=== PATIENT | female | born 2000 | race Caucasian/White ===

== ENCOUNTER 2023-11-13 08:57 | Outpatient (AMB) | payer BC, SELFPAY ==
--- NOTE | 2023-11-13 09:18 | A.OFFPC_ITS ---
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: No Was dental information given to patient?: 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 She is transferring from [facility]. She states that her last physical with [facility] was in August of this year. She has a significant past medical history of anxiety, depression and migraines. Neuro: She states that she has a hx of migraines and for many years she has been on amitriptyline x 10 years or so. She has tried topamax but it was ineffective. She has never seen a neurologist or an MRI. She states the amitriptyline used to prevent headaches but recently she has been getting more breakthrough migraines. She is getting migraines 4x a month and then dull headaches a few times a month as well. She states that the migraine is usually throughout the front part of her head but can occur on either side of her head. She will get an aura with it. She states that developing the aura is relatively new for her and has only been present for the last year. She states the last 6 months is when she noticed them getting worse. She states she has a lot anxiety and thinks that her stress triggers migraines. Temperature fluctuations trigger migraines. Light and sound make it worse. She states when she gets a migraine she takes Excedrin. Has not had an eye exam since childhood. She does have a family history of migraines. She denies any paresthesias, weakness, abnormal gait, nausea or vomiting. Psych: She does report that her anxiety does feel overall controlled. Her depression is still present but mild. She states in 2019 she started treatment for anxiety and depression. She states at that time she was on zoloft and amitriptyline. She was on this combo for a year and it was not that helpful. No adverse effects to medications. She denies hospitalizations related to mental health. She denies any SI/HI. No auditory or visual hallucinations. She does not want to see a therapist. She feels that she can manage this on her own. Reports a good support system. 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 [employer]: [facility]. She has an appointment scheduled with a bookkeeping clerk in February. [facility] Medical History (Updated 11/13/23 @ 10:08 by Dory Guevara PA-C) Major depression in partial remission Generalized anxiety disorder Migraine headache with aura Family History Mother HTN (hypertension) Diabetes Social History Housing: Apartment Patient Tobacco Use Status: Never used Tobacco e-Cigarette/Vaping Use: Never Used Second Hand Smoke Exposure: Yes service: No Current occupational status: employed Current occupation: [email or web address] Current occupational exposures/hazards: No Cognitive needs: No Hearing needs: No Vision needs: No Female Reproductive History Menstrual Date of last menstrual period: 09/07/23 Questionnaire PHQ-9 Over the last 2 weeks, how often have you been bothered by any of the following problems? 1. Little interest or pleasure in doing things: nearly every day 2. Feeling down, depressed, or hopeless: more than half the days 3. Trouble falling or staying asleep, or sleeping too much: nearly every day 4. Feeling tired or having little energy: nearly every day 5. Poor appetite or overeating: more than half the days 6. Feeling bad about yourself - or that you are a failure or have let yourself or your family down: not at all 7. Trouble concentrating on things, such as reading the newspaper or watching television: more than half the days 8. Moving or speaking so slowly that other people could have noticed. Or the opposite - being so fidgety or restless that you have been moving around a lot more than usual: not at all 9. Thoughts that you would be better off or of hurting yourself in some way: not at all Total score: 15 Depression Screening Interpretation: Positive Depression Screening Follow-up: Existing condition, In treatment, Change in Medication and Follow-up Visit Requested Depression Screening Done: Yes 67215 - PHQ-9 Billing: Yes Source: Developed by Drs. Amos Sena, Amy Pritchett, Ever Quintanilla and colleagues, with an educational tomas from [employer]. Thrive Questionnaire Date Thrive assessed: 11/13/23 I am a: Patient What is your living situation today?: I have a steady place to live Within the past 12 months, did the food you bought not last and you didn't have the money to get more?: Never true Within the past 12 months, did you worry whether your food would run out before you got money to buy more?: Never true Do you have trouble paying for medicines?: No Do you have trouble getting transportation to medical appointments?: No Do you have trouble paying your heating and electricity bill?: No Do you have trouble taking care of your child, family member or friend?: No Do you have trouble with day-to-day activities such as bathing, preparing meals, shopping, managing finances, etc.?: No Are you currently unemployed and looking for a job?: No Are you interested in more education?: No Please select the resources that you would like help with: None Currently or been in a relationship where the following occur: no concerns reported THRIVE Score: 0 AUDIT C Alcohol Use Questionnaire (AUDIT-C) 1. How often do you have a drink containing alcohol?: Monthly or less 2. How many drinks containing alcohol do you have on a typical day when you are drinking?: 1 or 2 Total Score: 1 Score Reviewed/Action Taken: Yes MARÍA-7 AMB Questionnaire MARÍA-7 Date MARÍA - 7 assessed: 11/13/23 Feeling nervous, anxious, or on edge: 0 = Not at all Not being able to stop or control worryin = Several days Worrying too much about different things: 3 = Nearly every day Trouble relaxin = Several days Being so restless that it is hard to sit still: 0 = Not at all Becoming easily annoyed or irritable: 1 = Several days Feeling afraid as if something awful might happen: 0 = Not at all Total MARÍA-7 score (0-4 normal; 5-9 mild; 10-14 moderate; 15-21 severe): 6 Source: Developed by Drs. Amos Sena, Amy Pritchett, Ever Quintanilla and colleagues, with an educational tomas from [employer]. MARÍA-7 Assessment Billing MARÍA-7 Assessment Tool: MARÍA-7 Assessment 36813 Review of Systems Const Reports as per HPI Eyes Reports as per HPI ENT Denies dysphagia and Denies odynophagia Card Denies as per HPI, Denies no additional complaints, Denies acrocyanosis, Denies chest pain, Denies chest pain at rest, Denies chest pain with activity, Denies diaphoresis, Denies syncope, Denies rapid heart rate, Denies pedal edema, Denies edema, Denies irregular heart rhythm, Denies claudication, Denies leg ulcers, Denies leg edema, Denies lightheadedness, Denies radiating jaw, neck or arm pain, Denies palpitations, Denies dyspnea, Denies dyspnea on exertion, Denies orthopnea, Denies paroxysmal nocturnal dyspnea, Denies slow heart rate and Denies other Resp Denies dyspnea and Denies dyspnea on exertion GI Denies as per HPI, Denies no additional complaints, Denies abdominal pain, Denies belching, Denies melena, Denies bloating, Denies hematochezia, Denies change in bowel habits, Denies tenesmus, Denies change in stool character, Denies coffee ground emesis, Denies constipation, Denies GI cramping, Denies dysphagia, Denies excessive flatus, Denies early satiety, Denies dyspepsia, Denies heartburn, Denies fecal incontinence, Denies diarrhea, Denies loose stools, Denies nausea, Denies odynophagia, Denies vomiting, Denies hematemesis and Denies other Neuro Reports as per HPI and Denies syncope Psych Reports as per HPI Endo Denies palpitations Physical exam (Primary Care) Vital Signs: Last Vital Signs Temp 98.7 F 11/13/23 09:24 Pulse 116 H 11/13/23 09:24 Resp 12 11/13/23 09:24 BP 98/78 11/13/23 09:24 Pulse Ox 98 11/13/23 09:24 Oxygen Delivery Method Room Air 11/13/23 09:24 BMI result Body Mass Index 22.7 Tobacco/Smoking Status: Tobacco use Status Tobacco use date assessed 11/13/23 11/13/23 09:29 Patient Tobacco Use Status Never used Tobacco 11/13/23 09:29 e-Cigarette/Vaping Use Never Used 11/13/23 09:29 PHQ-9: PHQ-9 Score PHQ-9: Total score 15 11/13/23 09:29 Depression Screening Interpretation: Positive Depression Screening Follow-up: Existing condition, In treatment, Change in Medication and Follow-up Visit Requested Thrive Assessment: Date of Thrive Assessment Date Thrive assessed 11/13/23 11/13/23 09:29 Currently or been in a relationship where the following occur: no concerns reported Const Orientation/consciousness: patient oriented x3 HENMT Ears: hearing grossly normal bilaterally and TM's normal bilaterally Eyes Pupils: Equal, round and reactive pupils present EOM: EOMs intact bilaterally Neck Thyroid: Thyroid normal Lymphatic: no lymphadenopathy noted Resp Auscultation: clear to auscultation bilaterally Cardio Rate: regular rate Rhythm: regular rhythm Heart sounds: S1 normal heart sound present and S2 normal heart sound present GI Inspection: Yes normal to inspection Palpation (GI): Soft to palpation and Other GI palpation findings present (n ontender, no cva tenderness) Auscultation: normoactive bowel sounds Rectal Exam - Female: deferred Skin General skin exam: no rashes or lesions noted Neuro General: patient oriented x3, gait normal, no focal motor deficits and deep tendon reflexes 2+ bilaterally Cranial nerves: Yes CN's II-XII intact bilaterally and Yes Equal, round and reactive pupils present Motor exam (neuro): 5/5 motor strength present throughout Sensory Exam: double simultaneous stimulation for sensation normal Coordination: [id number] test normal Romberg Test: Negative Extrem General: Yes full ROM Psych Affect: normal affect Attitude: cooperative Thought process: Normal thought process present Thought content: Normal thought content present Insight: Good insight present (Psych) Judgement: Good judgement present (Psych) Assessment and Plan Assessment & Plan (1) Migraine headache with aura: Code(s): G43.109 - Migraine with aura, not intractable, without status migrainosus Qualifiers: Status migrainosus presence: without status migrainosus Intractability: not intractable Qualified Code(s): G43.109 - Migraine with aura, not intractable, without status migrainosus Plan: Patient does appear grossly neurologically intact. Given the increased number of migraines and breakthrough headaches labs and MRI ordered. We discussed trying magnesium, riboflavin and B supplements. I will increase the amitriptyline. We will have her follow-up in 4 weeks. Advised to increase hydration and to get an eye exam. Sooner if anything worsens or changes. (2) Generalized anxiety disorder: Code(s): F41.1 - Generalized anxiety disorder Plan: See above. (3) Major depression in partial remission: Code(s): F32.4 - Major depressive disorder, single episode, in partial remission Qualifiers: Major depression recurrence: recurrent Qualified Code(s): F33.41 - Major depressive disorder, recurrent, in partial remission Plan: Increased amitriptyline. (4) Encounter to establish care: Code(s): Z76.89 - Persons encountering health services in other specified circumstances Plan: Labs ordered today including cholesterol she has not had this done. Orders: Orders Complete Blood Count Auto Diff Today F32.4 - Major depressive disorder, single episode, in partial remission, F41.1 - Generalized anxiety disorder, G43.109 - Migraine with aura, not intractable, without status migrainosus, Z13.220 - Encounter for screening for lipoid disorders, Z76.89 - Persons encountering health services in other specified circumstances Comprehensive [place]. Panel Fast Today F32.4 - Major depressive disorder, single episode, in partial remission, F41.1 - Generalized anxiety disorder, G43.109 - Migraine with aura, not intractable, without status migrainosus, Z13.220 - Encounter for screening for lipoid disorders, Z76.89 - Persons encountering health services in other specified circumstances IRON PROFILE Today F32.4 - Major depressive disorder, single episode, in partial remission, F41.1 - Generalized anxiety disorder, G43.109 - Migraine with aura, not intractable, without status migrainosus, Z13.220 - Encounter for screening for lipoid disorders, Z76.89 - Persons encountering health services in other specified circumstances Vitamin B12 and Folate Today F32.4 - Major depressive disorder, single episode, in partial remission, F41.1 - Generalized anxiety disorder, G43.109 - Migraine with aura, not intractable, without status migrainosus, Z13.220 - Encounter for screening for lipoid disorders, Z76.89 - Persons encountering health services in other specified circumstances Lipid Panel Today F32.4 - Major depressive disorder, single episode, in partial remission, F41.1 - Generalized anxiety disorder, G43.109 - Migraine with aura, not intractable, without status migrainosus, Z13.220 - Encounter for screening for lipoid disorders, Z76.89 - Persons encountering health services in other specified circumstances TSH reflex Free T4 Today F32.4 - Major depressive disorder, single episode, in partial remission, F41.1 - Generalized anxiety disorder, G43.109 - Migraine with aura, not intractable, without status migrainosus, Z13.220 - Encounter for screening for lipoid disorders, Z76.89 - Persons encountering health services in other specified circumstances Ferritin Today F32.4 - Major depressive disorder, single episode, in partial remission, F41.1 - Generalized anxiety disorder, G43.109 - Migraine with aura, not intractable, without status migrainosus, Z13.220 - Encounter for screening for lipoid disorders, Z76.89 - Persons encountering health services in other specified circumstances MR head/brain wo con Today G43.109 - Migraine with aura, not intractable, without status migrainosus Medications: New amitriptyline 75 mg PO BEDTIME 90 days 90 tabs 2RF Coding Level of Care Code New Pt Level 3 (22491) Complex EM visit Add On G2211 Diagnoses Migraine with aura and without status migrainosus, not intractable G43.109 Status migrainosus presence: without status migrainosus Intractability: not intractable Generalized anxiety disorder F41.1 Recurrent major depressive disorder, in partial remission F33.41 Major depression recurrence: recurrent Encounter to establish care Z76.89 Additional Codes MARÍA-7 Assessment Billing - MARÍA-7 Assessment Tool: MARÍA-7 Assessment [id number] ([id number])
[2023-11-13 09:24] VITALS: BP 98/78; PULSE 116; RESP 12; TEMP 37.1; O2SAT 98; BMI 22.7
== END 2023-11-13 10:09 | disposition home or self-care (01) ==
PROVIDERS: PCP Physician Assistant; Visit Provider Physician Assistant
DX: G43.109 Migraine with aura, not intractable, without status migrainosus (principal); F41.1 Generalized anxiety disorder; F33.41 Major depressive disorder, recurrent, in partial remission; Z76.89 Persons encountering health services in other specified circumstances
CPT/HCPCS: 96127; 99204; G2211

== ENCOUNTER 2023-11-13 10:09 | Outpatient (REF) | payer BC, SELFPAY ==
[2023-11-13 11:39] LABS: MANUAL DIFF FLAG NO
[2023-11-13 11:45] LABS: Basophils Absolute Auto 0.1 X10*3/uL (0.0-0.2); Basophils Percent Auto 0.9 % (0-2); Eosinophils Percent Auto 0.5 % (0-4); Hematocrit 45.2 % (37.0-47.0); Hemoglobin 15.4 g/dl (12.0-16.0); Imm Gran Abs Auto 0.01 X10*3/uL (0.00-0.03); Imm Gran Pct Auto 0.2 % (0.0-0.4); Lymphocytes Absolute Auto 1.3 X10*3/uL (1.2-4.9); Lymphocytes Percent Auto 22.9 % (20-40); Mean Corpuscular HGB Conc 34.1 g/dl (31.0-35.0); Mean Corpuscular Hemoglobin 30.9 pg (27.0-33.0); Mean Corpuscular Volume 90.8 fL (80.0-98.0); Mean Platelet Volume 10.6 fL (9.4-12.3); Monocytes Absolute Auto 0.4 X10*3/uL (0.1-1.2); Monocytes Percent Auto 6.2 % (2-11); Neutrophils Absolute Auto 3.9 x10*3/uL (2.0-8.3); Neutrophils Percent Auto 69.3 % (45-73); Platelet Count 236 X10*3/uL (160-400); Red Blood Count 4.98 X10*6/uL (4.20-5.50); Red Cell Distribution Width 12.6 % (11.0-16.0); White Blood Count 5.6 X10*3/uL (4.8-10.8)
[2023-11-13 12:02] LABS: Alanine Aminotransferase 22 U/L (0-31); Albumin Level 4.7 g/dL (3.5-5.0); Alkaline Phosphatase 50 U/L (39-117); Anion Gap 12 (12-20); Aspartate Amino Transferase 17 U/L (5-31); Bilirubin Total 0.6 mg/dL (0.0-1.0); Blood Urea Nitrogen 9 mg/dL (9-16); Calcium 9.8 mg/dL (8.4-10.2); Carbon Dioxide 24 mmol/L (22-29); Chloride 108 mmol/L (96-108); Cholesterol 170 mg/dL (<200); Estimated Glomerular Filt Rate > 60; Glucose Fasting 85 mg/dL (60-99); HDL Cholesterol 43 mg/dL (>40); Iron 152 mcg/dL (30-160); LDL Cholesterol Calculated 114 mg/dL (<100); Percent Iron Saturation 39 % (15-50); Potassium 4.1 mmol/L (3.3-5.1); Sodium 140 mmol/L (135-145); Total Iron Binding Capacity 388 mcg/dL (228-428); Total Protein 7.8 g/dL (6.5-8.0); Triglycerides 68 mg/dL (<150); Unsaturated Iron Binding 236 ug/dL
[2023-11-13 12:17] LABS: Ferritin 12 ng/mL (10-122); TSH reflex Free T4 1.86 uIU/mL (0.32-4.0)
[2023-11-13 12:57] LABS: Folate 7.7 ng/mL (> or = 4.0); Vitamin B12 189 pg/mL (200-900)
== END 2023-11-13 10:10 | disposition home or self-care (01) ==
LOC: HO.WFDLDS 10:09
PROVIDERS: Visit Provider Physician Assistant
DX: Z13.220 Encounter for screening for lipoid disorders (principal); Z13.6 Encounter for screening for cardiovascular disorders; G43.109 Migraine with aura, not intractable, without status migrainosus; F41.1 Generalized anxiety disorder; F32.4 Major depressive disorder, single episode, in partial remission; Z76.89 Persons encountering health services in other specified circumstances
CPT/HCPCS: 36415; 80053; 80061; 82607; 82728; 82746; 83540; 84443; 85025

== ENCOUNTER 2023-12-21 13:56 | Outpatient (AMB) | payer BC, SELFPAY ==
--- NOTE | 2023-12-21 14:07 | A.OFFPC_ITS ---
Vital Signs 12/21/23 14:13 Height 5 ft 1 in Weight 123 lb BMI 23.2 BP 104/70 Blood Pressure Location Lt radial Position Sitting Respiration 12 Pulse 64 Pulse Source Pulse Oximeter Temp 98.4 F Temp Source Oral Pulse Oximetry (%) 99 Oxygen Delivery Method Room Air Intake Visit Reasons: migraines/depression Allergies No Known Allergies [No Known Allergies*] Allergy (Verified 11/13/23 09:20) Medication List - Last Reconciled 12/21/23 by Dory Guevara PA-C cyanocobalamin (vitamin B-12) ER (Vitamin B-12 ER) 1,000 mcg PO DAILY medroxyprogesterone (Depo-Provera) 150 mg IM [id number] Tobacco use date assessed: 11/13/23 Dental Screening Dental Screen Date: 11/13/23 HPI migraines/depression HPI Details Pt is a 23 y/o female who presents today for a follow up. She has a significant past medical history of anxiety, depression and migraines. Neuro: At our last visit I increased the amitriptyline. She is tolerating this well and states that it has helped and she has only had about 1 headache a week since increasing this medication. Her MRI is scheduled along with her eye exam. She denies any paresthesias, weakness, abnormal gait, nausea or vomiting. Psych: She has felt since increasing the amitriptyline that her anxiety and depression are also better controlled. She feels happier since being on the B12 as well. Her PHQ-9 score improved. No SI/HI. PFSH Medical History (Updated 12/21/23 @ 15:08 by Dory Guevara PA-C) Major depression in partial remission Generalized anxiety disorder Migraine headache with aura Family History Mother HTN (hypertension) Diabetes Social History Housing: Apartment Patient Tobacco Use Status: Never used Tobacco e-Cigarette/Vaping Use: Never Used Second Hand Smoke Exposure: Yes service: No Current occupational status: employed Current occupation: [employer] Current occupational exposures/hazards: No Cognitive needs: No Hearing needs: No Vision needs: No Questionnaire PHQ-9 Over the last 2 weeks, how often have you been bothered by any of the following problems? 1. Little interest or pleasure in doing things: more than half the days 2. Feeling down, depressed, or hopeless: several days 3. Trouble falling or staying asleep, or sleeping too much: nearly every day 4. Feeling tired or having little energy: nearly every day 5. Poor appetite or overeating: not at all 6. Feeling bad about yourself - or that you are a failure or have let yourself or your family down: not at all 7. Trouble concentrating on things, such as reading the newspaper or watching television: not at all 8. Moving or speaking so slowly that other people could have noticed. Or the opposite - being so fidgety or restless that you have been moving around a lot more than usual: not at all 9. Thoughts that you would be better off or of hurting yourself in some way: not at all Total score: 9 Depression Screening Interpretation: Positive Depression Screening Done: Yes 47742 - PHQ-9 Billing: Yes Source: Developed by Drs. Amos Sena, Amy Pritchett, Ever Quintanilla and colleagues, with an educational tomas from [employer]. Thrive Questionnaire Date Thrive assessed: 12/21/23 I am a: Patient What is your living situation today?: I have a steady place to live Within the past 12 months, did the food you bought not last and you didn't have the money to get more?: Never true Within the past 12 months, did you worry whether your food would run out before you got money to buy more?: Never true Do you have trouble paying for medicines?: No Do you have trouble getting transportation to medical appointments?: No Do you have trouble paying your heating and electricity bill?: No Do you have trouble taking care of your child, family member or friend?: No Do you have trouble with day-to-day activities such as bathing, preparing meals, shopping, managing finances, etc.?: No Are you currently unemployed and looking for a job?: No Are you interested in more education?: No Please select the resources that you would like help with: None Currently or been in a relationship where the following occur: no concerns reported THRIVE Score: 0 MARÍA-7 AMB Questionnaire MARÍA-7 Date MARÍA - 7 assessed: 11/13/23 Source: Developed by Drs. Amos Sena, Amy BEver Blanchard and colleagues, with an educational tomas from [employer]. Physical exam (Primary Care) Vital Signs: Last Vital Signs Temp 98.4 F 12/21/23 14:13 Pulse 64 12/21/23 14:13 Resp 12 12/21/23 14:13 BP 104/70 12/21/23 14:13 Pulse Ox 99 12/21/23 14:13 Oxygen Delivery Method Room Air 12/21/23 14:13 BMI result Body Mass Index 23.2 Tobacco/Smoking Status: Tobacco use Status Tobacco use date assessed 11/13/23 12/21/23 14:14 Patient Tobacco Use Status Never used Tobacco 12/21/23 14:14 e-Cigarette/Vaping Use Never Used 12/21/23 14:14 Depression Screening Interpretation: Positive Thrive Assessment: Date of Thrive Assessment Date Thrive assessed 11/13/23 12/21/23 14:14 Currently or been in a relationship where the following occur: no concerns reported Const Orientation/consciousness: patient oriented x3 HENMT Ears: hearing grossly normal bilaterally Neck Thyroid: Thyroid normal Lymphatic: no lymphadenopathy noted Resp Auscultation: clear to auscultation bilaterally Cardio Rate: regular rate Rhythm: regular rhythm Heart sounds: S1 normal heart sound present and S2 normal heart sound present GI Inspection: Yes normal to inspection Palpation (GI): Soft to palpation and Other GI palpation findings present (nontender, no cva tenderness) Auscultation: normoactive bowel sounds Rectal Exam - Female: deferred Skin General skin exam: no rashes or lesions noted Neuro General: patient oriented x3, gait normal and no focal motor deficits Results Reviewed Results Reviewed: Laboratory Tests 11/13/23 10:10 WBC 5.6 RBC 4.98 Hgb 15.4 Hct 45.2 Plt Count 236 Sodium 140 Potassium 4.1 Creatinine 0.85 Estimated GFR > 60 Fasting Glucose 85 Calcium 9.8 Iron 152 AST 17 ALT 22 Alkaline Phosphatase 50 Vitamin B12 189 L TSH 1.86 Assessment and Plan Assessment & Plan (1) Major depression in partial remission: Code(s): F32.4 - Major depressive disorder, single episode, in partial remission Qualifiers: Major depression recurrence: recurrent Qualified Code(s): F33.41 - Major depressive disorder, recurrent, in partial remission Plan: Improved. Increased the amitriptyline (2) Migraine headache with aura: Code(s): G43.109 - Migraine with aura, not intractable, without status migrainosus Qualifiers: Status migrainosus presence: without status migrainosus Intractability: not intractable Qualified Code(s): G43.109 - Migraine with aura, not intractable, without status migrainosus Plan: As above. Continue with MRI and eye exam. (3) Generalized anxiety disorder: Code(s): F41.1 - Generalized anxiety disorder Plan: As above (4) B12 deficiency: Code(s): E53.8 - Deficiency of other specified B group vitamins Plan: Started on B12 supplements. Plan Follow up in 3 months. We will check labs at that time. Sooner if needed. Patient understands and agrees with the plan. Medications: New amitriptyline 100 mg PO BEDTIME 90 tabs 3RF Coding Level of Care Code Est Pt Level 4 (66258) Diagnoses Recurrent major depressive disorder, in partial remission F33.41 Major depression recurrence: recurrent Migraine with aura and without status migrainosus, not intractable G43.109 Status migrainosus presence: without status migrainosus Intractability: not intractable Generalized anxiety disorder F41.1 B12 deficiency E53.8
[2023-12-21 14:13] VITALS: BP 104/70; PULSE 64; RESP 12; TEMP 36.9; O2SAT 99; BMI 23.2
== END 2023-12-21 14:42 | disposition home or self-care (01) ==
PROVIDERS: PCP Physician Assistant; Visit Provider Physician Assistant
DX: F33.41 Major depressive disorder, recurrent, in partial remission (principal); G43.109 Migraine with aura, not intractable, without status migrainosus; F41.1 Generalized anxiety disorder; E53.8 Deficiency of other specified B group vitamins
CPT/HCPCS: 99214

== ENCOUNTER 2024-04-04 15:01 | Outpatient (AMB) | payer BC, SELFPAY ==
--- NOTE | 2024-04-04 15:06 | A.OFFPC_ITS ---
Vital Signs 04/04/24 15:07 Height 5 ft 1 in Weight 118 lb 6 oz BMI 22.4 BP 108/70 Blood Pressure Location Lt brachial Position Sitting Respiration 12 Pulse 114 H Pulse Source Pulse Oximeter Pulse Oximetry (%) 99 Oxygen Delivery Method Room Air Intake Visit Reasons: FollowUpMigraine Intake Note: Follow up migraines Allergies No Known Allergies [No Known Allergies*] Allergy (Verified 04/04/24 15:06) Medication List - Last Reconciled 04/04/24 by Dory Guevara PA-C cyanocobalamin (vitamin B-12) ER (Vitamin B-12 ER) 1,000 mcg PO DAILY medroxyprogesterone (Depo-Provera) 150 mg IM [id number] topiramate (Topamax) 25 mg PO BID Tobacco use date assessed: 11/13/23 Dental Screening Dental Screen Date: 11/13/23 HPI FollowUpMigraine HPI Details Pt is a 23 y/o female who presents today for a follow up. She has a significant past medical history of anxiety, depression and migraines. Neuro: At our last visit I increased the amitriptyline. She states it was initially working but after month she started to develop breakthrough headaches. She is getting headaches about 5 to 6 times a week. Sometimes they wake her up from sleep. She never got her MRI or her eye exam because she lost her job and had to transition to a new job. She denies any paresthesias, weakness, abnormal gait, nausea or vomiting. Psych: She states that her anxiety and depression are also better controlled. She feels happier since being on the B12 as well. Her PHQ-9 score improved. No SI/HI. [facility] Medical History (Updated 12/21/23 @ 15:08 by Dory Guevara PA-C) Major depression in partial remission Generalized anxiety disorder Migraine headache with aura Family History Mother HTN (hypertension) Diabetes Social History Housing: Apartment Patient Tobacco Use Status: Never used Tobacco e-Cigarette/Vaping Use: Never Used Second Hand Smoke Exposure: Yes service: No Current occupational status: employed Current occupation: [employer] Current occupational exposures/hazards: No Cognitive needs: No Hearing needs: No Vision needs: No Questionnaire PHQ-9 Over the last 2 weeks, how often have you been bothered by any of the following problems? 1. Little interest or pleasure in doing things: not at all 2. Feeling down, depressed, or hopeless: not at all 3. Trouble falling or staying asleep, or sleeping too much: not at all 4. Feeling tired or having little energy: nearly every day 5. Poor appetite or overeating: not at all 6. Feeling bad about yourself - or that you are a failure or have let yourself or your family down: not at all 7. Trouble concentrating on things, such as reading the newspaper or watching television: not at all 8. Moving or speaking so slowly that other people could have noticed. Or the opposite - being so fidgety or restless that you have been moving around a lot more than usual: not at all 9. Thoughts that you would be better off or of hurting yourself in some way: not at all Total score: 3 Source: Developed by Drs. Amos Sena, Amy Pritchett, Ever Quintanilla and colleagues, with an educational tomas from [employer] Thrive Questionnaire Date Thrive assessed: 12/21/23 I am a: Patient What is your living situation today?: I have a steady place to live Within the past 12 months, did the food you bought not last and you didn't have the money to get more?: Never true Within the past 12 months, did you worry whether your food would run out before you got money to buy more?: Never true Do you have trouble paying for medicines?: No Do you have trouble getting transportation to medical appointments?: No Do you have trouble paying your heating and electricity bill?: No Do you have trouble taking care of your child, family member or friend?: No Do you have trouble with day-to-day activities such as bathing, preparing meals, shopping, managing finances, etc.?: No Are you currently unemployed and looking for a job?: No Are you interested in more education?: No Please select the resources that you would like help with: None Currently or been in a relationship where the following occur: No concerns r eported THRIVE Score: 0 AUDIT C Alcohol Use Questionnaire (AUDIT-C) 1. How often do you have a drink containing alcohol?: Never Total Score: 0 MARÍA-7 AMB Questionnaire MARÍA-7 Date MARÍA - 7 assessed: 11/13/23 Feeling nervous, anxious, or on edge: 1 = Several days Not being able to stop or control worryin = Several days Worrying too much about different things: 1 = Several days Trouble relaxin = Not at all Being so restless that it is hard to sit still: 0 = Not at all Becoming easily annoyed or irritable: 0 = Not at all Feeling afraid as if something awful might happen: 0 = Not at all Total MARÍA-7 score (0-4 normal; 5-9 mild; 10-14 moderate; 15-21 severe): 3 Source: Developed by Drs. Amos Sena, Amy Pritchett, Ever Quintanilla and colleagues, with an educational tomas from [employer] Physical exam (Primary Care) Vital Signs: Last Vital Signs Pulse 121 H 04/04/24 15:07 Resp 12 04/04/24 15:07 BP 108/70 04/04/24 15:07 Pulse Ox 99 04/04/24 15:07 Oxygen Delivery Method Room Air 04/04/24 15:07 BMI result Body Mass Index 22.4 Tobacco/Smoking Status: Tobacco use Status Tobacco use date assessed 11/13/23 04/04/24 15:12 Patient Tobacco Use Status Never used Tobacco 04/04/24 15:12 e-Cigarette/Vaping Use Never Used 04/04/24 15:12 PHQ-9: PHQ-9 Score PHQ-9: Total score 3 04/04/24 15:12 Thrive Assessment: Date of Thrive Assessment Date Thrive assessed 12/21/23 04/04/24 15:12 Currently or been in a relationship where the following occur: No concerns reported Const Orientation/consciousness: patient oriented x3 HENMT Ears: hearing grossly normal bilaterally and TM's normal bilaterally Eyes Pupils: Equal, round and reactive pupils present EOM: EOMs intact bilaterally Neck Thyroid: Thyroid normal Lymphatic: no lymphadenopathy noted Resp Auscultation: clear to auscultation bilaterally Cardio Rate: regular rate Rhythm: regular rhythm Heart sounds: S1 normal heart sound present and S2 normal heart sound present GI Inspection: Yes normal to inspection Palpation (GI): Soft to palpation and Other GI palpation findings present (nontender, no cva tenderness) Auscultation: normoactive bowel sounds Rectal Exam - Female: deferred Skin General skin exam: no rashes or lesions noted Neuro General: patient oriented x3, gait normal, no focal motor deficits and deep tendon reflexes 2+ bilaterally Cranial nerves: Yes CN's II-XII intact bilaterally and Yes Equal, round and reactive pupils present Motor exam (neuro): 5/5 motor strength present throughout Sensory Exam: double simultaneous stimulation for sensation normal Coordination: [id number] test normal Romberg Test: Negative Extrem General: Yes full ROM Psych Affect: normal affect Attitude: cooperative Thought process: Normal thought process present Thought content: Normal thought content present Insight: Good insight present (Psych) Judgement: Good judgement present (Psych) Assessment and Plan Assessment & Plan (1) Migraine headache with aura: Code(s): G43.109 - Migraine with aura, not intractable, without status migrainosus Qualifiers: Status migrainosus presence: without status migrainosus Intractability: not intractable Qualified Code(s): G43.109 - Migraine with aura, not intractable, without status migrainosus Plan: taper the amitriptyline start topamax. discussed risks/benefits and adverse effects schedule MRI get eye exam referral to neuro placed labs today f/u 1 month or sooner if needed (2) Generalized anxiety disorder: Code(s): F41.1 - Generalized anxiety disorder Plan: stable (3) B12 deficiency: Code(s): E53.8 - Deficiency of other specified B group vitamins Plan: on b12 and tolerating well. recheck b12 today. Orders: Orders MR head/brain wo con Today G43.109 - Migraine with aura, not intractable, without status migrainosus Complete Blood Count Auto Diff Today E53.8 - Deficiency of other specified B group vitamins, F41.1 - Generalized anxiety disorder, G43.109 - Migraine with aura, not intractable, without status migrainosus IRON PROFILE Today E53.8 - Deficiency of other specified B group vitamins, F41.1 - Generalized anxiety disorder, G43.109 - Migraine with aura, not intractable, without status migrainosus Vitamin B12 and Folate Today E53.8 - Deficiency of other specified B group vitamins, F41.1 - Generalized anxiety disorder, G43.109 - Migraine with aura, not intractable, without status migrainosus TSH reflex Free T4 Today G43.109 - Migraine with aura, not intractable, without status migrainosus Comprehensive Met. Panel Today E53.8 - Deficiency of other specified B group vitamins, F41.1 - Generalized anxiety disorder, G43.109 - Migraine with aura, not intractable, without status migrainosus Magnesium Today E53.8 - Deficiency of other specified B group vitamins, F41.1 - Generalized anxiety disorder, G43.109 - Migraine with aura, not intractable, without status migrainosus Referrals Neurology Referral G43.109 - Migraine with aura, not intractable, without status migrainosus Medications: New topiramate (Topamax) 25 mg PO BID 60 tabs 2RF Discontinued amitriptyline Discontinued Reason: Doctor's Order 100 mg PO BEDTIME 90 tabs 3RF Coding Level of Care Code Est Pt Level 4 (67911) Complex EM visit Add On G2211 Diagnoses Migraine with aura and without status migrainosus, not intractable G43.109 Status migrainosus presence: without status migrainosus Intractability: not intractable Generalized anxiety disorder F41.1 B12 deficiency E53.8
[2024-04-04 15:07] VITALS: BP 108/70; PULSE 114; RESP 12; O2SAT 99; BMI 22.4
== END 2024-04-04 15:34 | disposition home or self-care (01) ==
PROVIDERS: PCP Physician Assistant; Visit Provider Physician Assistant
DX: G43.109 Migraine with aura, not intractable, without status migrainosus (principal); F41.1 Generalized anxiety disorder; E53.8 Deficiency of other specified B group vitamins
CPT/HCPCS: 99214

== ENCOUNTER 2024-04-04 15:51 | Outpatient (REF) | payer BC, SELFPAY ==
[2024-04-04 17:21] LABS: MANUAL DIFF FLAG NO
[2024-04-04 17:25] LABS: Basophils Percent Auto 0.6 % (0-2); Eosinophils Percent Auto 0.6 % (0-4); Hematocrit 41.5 % (37.0-47.0); Hemoglobin 14.2 g/dl (12.0-16.0); Imm Gran Abs Auto 0.01 X10*3/uL (0.00-0.03); Imm Gran Pct Auto 0.2 % (0.0-0.4); Lymphocytes Percent Auto 40.7 % (20-40); Mean Corpuscular HGB Conc 34.2 g/dl (31.0-35.0); Mean Corpuscular Hemoglobin 31.1 pg (27.0-33.0); Mean Platelet Volume 10.3 fL (9.4-12.3); Monocytes Absolute Auto 0.4 X10*3/uL (0.1-1.2); Monocytes Percent Auto 8.1 % (2-11); Neutrophils Absolute Auto 2.5 x10*3/uL (2.0-8.3); Neutrophils Percent Auto 49.8 % (45-73); Platelet Count 224 X10*3/uL (160-400); Red Blood Count 4.56 X10*6/uL (4.20-5.50); Red Cell Distribution Width 12.5 % (11.0-16.0)
[2024-04-04 17:54] LABS: Alanine Aminotransferase 19 U/L (0-31); Albumin Level 4.6 g/dL (3.5-5.0); Alkaline Phosphatase 57 U/L (39-117); Anion Gap 13 (12-20); Aspartate Amino Transferase 16 U/L (5-31); Bilirubin Total 0.3 mg/dL (0.0-1.0); Blood Urea Nitrogen 10 mg/dL (9-16); Calcium 9.8 mg/dL (8.4-10.2); Carbon Dioxide 25 mmol/L (22-29); Chloride 107 mmol/L (96-108); Estimated Glomerular Filt Rate > 60; Glucose Random 69 mg/dL (60-115); Iron 101 mcg/dL (30-160); Magnesium 2.2 mg/dL (1.6-2.6); Percent Iron Saturation 29 % (15-50); Potassium 3.7 mmol/L (3.3-5.1); Sodium 141 mmol/L (135-145); Total Iron Binding Capacity 346 mcg/dL (228-428); Total Protein 7.5 g/dL (6.5-8.0); Unsaturated Iron Binding 245 ug/dL
[2024-04-04 18:10] LABS: TSH reflex Free T4 2.53 uIU/mL (0.32-4.0)
[2024-04-04 18:23] LABS: Folate 11.5 ng/mL (> or = 4.0); Vitamin B12 290 pg/mL (200-900)
== END 2024-04-04 15:52 | disposition home or self-care (01) ==
LOC: HO.WFDLDS 15:51
PROVIDERS: Visit Provider Physician Assistant
DX: G43.109 Migraine with aura, not intractable, without status migrainosus (principal); E53.8 Deficiency of other specified B group vitamins; F41.1 Generalized anxiety disorder
CPT/HCPCS: 36415; 80053; 82607; 82746; 83540; 83735; 84443; 85025

== ENCOUNTER 2024-04-30 09:47 | Outpatient (AMB) | payer BC, SELFPAY ==
--- NOTE | 2024-04-30 09:49 | AM.OFFWIN_ITS ---
Intake Vital Signs 04/30/24 09:56 Height 5 ft 1 in Weight 114 lb 4 oz BMI 21.6 BP 90/68 Blood Pressure Location Lt brachial Position Sitting Respiration 16 Pulse 111 H Pulse Source Pulse Oximeter Temp 98.4 F Temp Source Oral Pulse Oximetry (%) 99 Oxygen Delivery Method Room Air Intake Visit Reasons: est/ itchy all over/ spots all over Intake Note: patient here c/o itchy all over ans she has spots all over Patient Tobacco Use Status: Never used Tobacco Is last menstrual period known: No (depo) Post menopausal: No Patient : No Allergies No Known Allergies [No Known Allergies*] Allergy (Verified 04/30/24 10:04) Medication List - Last Reconciled 04/30/24 by Breana Valderrama CNP cyanocobalamin (vitamin B-12) ER (Vitamin B-12 ER) 1,000 mcg PO DAILY medroxyprogesterone (Depo-Provera) 150 mg IM [id number] topiramate (Topamax) 25 mg PO BID Do you need a note to return to daycare/school/sports/work: No HPI HPI Comments History of Present Illness Details 23-year-old female presents with complai nts of generalized itchy rash for the past 7 days. She notes that the rash is on her neck, torso, and extremities. She denies new food to her diet, new body products, or new detergent. No pain or respiratory symptoms. She was started on topiramate 25 mg twice daily on 04/04/2024 for migraine prophylaxis. [facility] Medical History (Updated 04/30/24 @ 10:27 by Breana Valderrama CNP) Major depression in partial remission Generalized anxiety disorder Migraine headache with aura Family History Mother HTN (hypertension) Diabetes Social History Housing: Apartment Patient Tobacco Use Status: Never used Tobacco e-Cigarette/Vaping Use: Never Used Second Hand Smoke Exposure: Yes Patient : No service: No Current occupational status: employed Current occupation: [employer] Current occupational exposures/hazards: No Cognitive needs: No Hearing needs: No Vision needs: No Review of Systems Const Details: Denies chills, Denies fatigue, Denies fever(s), Denies headache(s) and Denies weakness Cardiac Denies chest pain, Denies claudication, Denies leg edema, Denies lightheadedness, Denies palpitations, Denies dyspnea, Denies dyspnea on exertion, Denies orthopnea and Denies other (Loss of consciousness) Resp Denies cough, Denies excessive phlegm production, Denies dyspnea, Denies dyspnea on exertion, Denies snoring and Denies wheezing Skin Reports as per HPI Physical Exam Vital Signs: Last Vital Signs Temp 98.4 F 04/30/24 09:56 Pulse 111 H 04/30/24 09:56 Resp 16 04/30/24 09:56 BP 90/68 04/30/24 09:56 Pulse Ox 99 04/30/24 09:56 Oxygen Delivery Method Room Air 04/30/24 09:56 BMI result Body Mass Index 21.6 Const Other: General: comfortable and no acute distress Orientation/consciousness: patient oriented x3 Chest Chest palpation & inspection: normal inspection of the chest Resp Auscultation: clear to auscultation bilaterally Cardiac Palpation: normal PMI Heart sounds: S1 normal heart sound present, S2 normal heart sound present, no gallops, no murmur, no rubs Skin Red, round, slightly raised rash with central clearing and dry skin to core, scattered to her neck, torso, upper and lower extremities; consistent with e rythema multiforme Assessment & Plan Assessment & Plan (1) Erythema multiforme: Code(s): L51.9 - Erythema multiforme, unspecified Plan: Patient presents with generalized itchy rash x1 week. No respiratory symptoms Red, round, slightly raised rash with central clearing and dry skin to core, scattered to her neck, torso, upper and lower extremities; consistent with erythema multiforme Likely caused by topiramate which she has been on for almost a month Will discontinue topiramate. Advised to stop taking the medication Hydroxyzine 25 mg 3 times daily as needed ordered for itching. Advised to take as prescribed. Instructed on the risks, benefits, and potential adverse reactions of the medications Follow-up with PCP in a week or sooner with worsening or new symptoms. Go to the ED with respiratory symptoms, fever, chills, body aches, fatigue or weakness Verbalized understanding and agreed with the plan (2) Migraine headache with aura: Code(s): G43.109 - Migraine with aura, not intractable, without status migrainosus Qualifiers: Status migrainosus presence: without status migrainosus Intractability: not intractable Qualified Code(s): G43.109 - Migraine with aura, not intractable, without status migrainosus Plan: No acute symptoms Will trial riboflavin 400 mg daily and magnesium oxide 400 mg daily for migraine prophylaxis. Advised to take as prescribed. Instructed on the risks, benefits, and potential adverse reactions of the medication Follow-up with PCP as planned Medications: New magnesium oxide 400 mg PO DAILY 30 days 30 tabs 1RF riboflavin (vitamin B2) 400 mg PO DAILY 30 days 30 tabs 1RF hydroxyzine HCl 25 mg PO TID PRN 90 tabs 0RF itching Discontinued topiramate (Topamax) Discontinued Reason: None 25 mg PO BID 60 tabs 2RF Coding Level of Care Code Est Pt Level 4 (73351) Diagnoses Erythema multiforme L51.9 Migraine with aura and without status migrainosus, not intractable G43.109 Status migrainosus presence: without status migrainosus Intractability: not intractable
[2024-04-30 09:56] VITALS: BP 90/68; PULSE 111; RESP 16; TEMP 36.9; O2SAT 99; BMI 21.6
== END 2024-04-30 10:18 | disposition home or self-care (01) ==
PROVIDERS: PCP Physician Assistant; Visit Provider Nurse Practitioner Family
DX: L51.9 Erythema multiforme, unspecified (principal); G43.109 Migraine with aura, not intractable, without status migrainosus

== ENCOUNTER → 2024-04-30 09:47 | Outpatient (BNVA) | payer BC, SELFPAY | PROVIDERS: PCP Physician Assistant ==

== ENCOUNTER 2024-05-05 10:19 | Outpatient (REF) | payer BC, SELFPAY ==
--- NOTE | ~2024-05-05 | MR_ITS ---
EXAMINATION: MR BRAIN WITHOUT CONTRAST CLINICAL INFORMATION: Migraine. COMPARISON: None available. TECHNIQUE: MRI of the brain was obtained using routine sequences without contrast. FINDINGS: No focal restricted diffusion is demonstrated to suggest acute or subacute cerebral ischemia. No evidence of acute or chronic hemorrhagic products on heme-sensitive imaging. Normal parenchymal signal characteristics. The ventricles are normal in morphology and size. No abnormal mass effect. No midline shift. Normal appearance of the pituitary gland. The suprasellar cistern remains widely patent. Normal positioning of the cerebellar tonsils. Normal arterial and venous vascular flow voids are present. Normal, homogeneous marrow signal. Mild mucosal thickening of the paranasal sinuses. Mild rightward nasal septal deviation. No signal abnormalities within the mastoids. MR/MR head/brain wo con IMPRESSION: 1. No acute intracranial abnormalities. 2. No MRI abnormalities to explain the patient's symptoms. Electronically signed by: Darshan Harvey DO 07/03/2024 03:42 AM CHRISTINA
== END 2024-05-05 10:20 | disposition home or self-care (01) ==
LOC: HO.MRI 10:19
PROVIDERS: PCP Physician Assistant; Visit Provider Physician Assistant
DX: G43.109 Migraine with aura, not intractable, without status migrainosus (principal)
CPT/HCPCS: 70551

== ENCOUNTER 2024-06-12 13:45 | Outpatient (AMB) | payer BC, SELFPAY ==
--- NOTE | 2024-06-12 13:55 | A.OFFPC_ITS ---
Vital Signs 06/12/24 14:01 Height 5 ft 1 in Weight 115 lb 8 oz BMI 21.8 BP 106/62 Blood Pressure Location Rt brachial Position Sitting Pulse 91 Pulse Source Pulse Oximeter Pulse Oximetry (%) 97 Oxygen Delivery Method Room Air Intake Visit Reasons: Migraine F/U Intake Note: Migraine follow up. MRI report not back yet Allergies topiramate [From Topamax] Allergy (Severe, Verified 06/12/24 13:59) red spots all over and itching. Medication List - Last Reconciled 06/12/24 by Dory Guevara PA-C cyanocobalamin (vitamin B-12) ER (Vitamin B-12 ER) 1,000 mcg PO DAILY hydroxyzine HCl 25 mg PO TID PRN magnesium oxide 400 mg PO DAILY 30 days medroxyprogesterone (Depo-Provera) 150 mg IM [id number] riboflavin (vitamin B2) 400 mg PO DAILY 30 days Tobacco use date assessed: 11/13/23 Dental Screening Dental Screen Date: 11/13/23 HPI Migraine F/U HPI Details History of Present Illness The patient is a 23-year-old female with a hx of insomnia, MARÍA, migraines, and b12 def presenting today for a migraine follow up. The migraines have improved since starting riboflavin and magnesium. She was trialed on amitriptyline (ineffective) and Topamax (allergic reaction govind festing as a rash). -The rash improved once Topamax was stop ped, but residual dry, flaky patches persist on the arms, back, chest, abdomen, and legs. She uses moisturizing lotion and hydrocortisone without significant relief. The patient reports migraines occurring about once or twice a week, lasting up to two days. These headaches are frontally located and do not favor a particular side. Symptoms reportedly improved with magnesium and riboflavin supplements alongside B12 replenishment, which has elevated serum B12 levels from 189 to 290. An MRI was performed, but results are pending. The patient also experiences insomnia exacerbated by racing thoughts and a nocturnal lifestyle. The use of melatonin has been insufficient for maintaining sleep, leading to nighttime awakenings. Poor sleep correlates with headache occurrence. She denies regular use of hydroxyzine for anxiety but notes its use for pruritus of the rash. Has not helped sleep. Social History Review of Systems - Neurological: denies dizziness. - Sleep: Reports insomnia characterized by nighttime awakenings. Physical Exam General: Cooperative, healthy appearing, comfortable, no acute distress and well developed Orientation: Patient oriented x3 Limitations: No limitations Head: Normal to inspection Ears: Hearing grossly normal bilaterally Nose: Normal external nose present Face and sinus: Normal facial exam Eyes: Pupils are nice, equal round, reactive to light. Extraocular movements are intact. Neck: Normal visual inspection and Yes full ROM Respiratory: Normal respiratory effort and able to speak in complete sentences. Clear to auscultation bilaterally Cardiovascular: Regular rate and rhythm. Normal S1 and S2. Heart rate's normal. No murmurs. GI: Normal to inspection. Soft to palpation and nontender Skin: Small flesh colored slightly pink, blanching, scaly, lesions scattered throughout upper extremities, back, chest, abdomen, and on the legs. Neuro: Patient oriented x3. Strength is 5 out of 5. Deep tendon reflexes, 2+ bilaterally. CN2-12 grossly intact. Finger to nose and heel to toe walking without abnormalities. Extremities: Normal to inspection Results Plan Patient was informed and verbally consented to the use of an ambient scribe for clinic note documentation during this visit. Discussion Notes Patient Instructions [facility] Medical History (Updated 06/12/24 @ 14:21 by Dory Guevara PA-C) Major depression in partial remission Generalized anxiety disorder Migraine headache with aura Family History Mother HTN (hypertension) Diabetes Social History (Updated 06/12/24 @ 14:03 by Awilda Nunez CMA) Housing: Apartment Alcohol intake: current Patient Tobacco Use Status: Never used Tobacco e-Cigarette/Vaping Use: Never Used Second Hand Smoke Exposure: Yes service: No Current occupational status: employed Current occupation: [employer] Current occupational exposures/hazards: No Cognitive needs: No Hearing needs: No Vision needs: No Questionnaire Thrive Questionnaire Date Thrive assessed: 04/04/24 I am a: Patient What is your living situation today?: I have a steady place to live Within the past 12 months, did the food you bought not last and you didn't have the money to get more?: Never true Within the past 12 months, did you worry whether your food would run out before you got money to buy more?: Never true Do you have trouble paying for medicines?: No Do you have trouble getting transportation to medical appointments?: No Do you have trouble paying your heating and electricity bill?: No Do you have trouble taking care of your child, family member or friend?: No Do you have trouble with day-to-day activities such as bathing, preparing meals, shopping, managing finances, etc.?: No Are you currently unemployed and looking for a job?: No Are you interested in more education?: No Please select the resources that you would like help with: None Currently or been in a relationship where the following occur: No concerns reported THRIVE Score: 0 MARÍA-7 AMB Questionnaire MARÍA-7 Date MARÍA - 7 assessed: 11/13/23 Source: Developed by Drs. Amos Sena, Amy Pritchett, Ever Quintanilla and colleagues, with an educational tomas from [employer]. Physical exam (Primary Care) Vital Signs: Last Vital Signs Pulse 91 06/12/24 14:01 BP 106/62 06/12/24 14:01 Pulse Ox 97 06/12/24 14:01 Oxygen Delivery Method Room Air 06/12/24 14:01 BMI result Body Mass Index 21.8 Tobacco/Smoking Status: Tobacco use Status Tobacco use date assessed 11/13/23 06/12/24 13:55 Patient Tobacco Use Status Never used Tobacco 06/12/24 14:03 e-Cigarette/Vaping Use Never Used 06/12/24 14:03 Thrive Assessment: Date of Thrive Assessment Date Thrive assessed 04/04/24 06/12/24 13:55 Currently or been in a relationship where the following occur: No concerns reported Coding Level of Care Code Est Pt Level 4 (68842) Complex EM visit Add On G2211 Diagnoses Insomnia G47.00 Generalized anxiety disorder F41.1 Migraine with aura and without status migrainosus, not intractable G43.109 Status migrainosus presence: without status migrainosus Intractability: not intractable B12 deficiency E53.8 Assessment & Plan Assessment & Plan (1) Insomnia: Code(s): G47.00 - Insomnia, unspecified Category: Medical Plan: Trazodone (2) Generalized anxiety disorder: Code(s): F41.1 - Generalized anxiety disorder Category: Medical Plan: Stable. (3) Migraine headache with aura: Code(s): G43.109 - Migraine with aura, not intractable, without status migrainosus Category: Medical Qualifiers: Status migrainosus presence: without status migrainosus Intractability: not intractable Qualified Code(s): G43.109 - Migraine with aura, not intractable, without status migrainosus Plan: Improved. Continue supplements. Pending MRI. Advised eye exam and hydration. (4) B12 deficiency: Code(s): E53.8 - Deficiency of other specified B group vitamins Category: Medical Plan: Improved. Continue vitamin B12 supplement Medications: New triamcinolone acetonide 0.025% 1 appl topical BID 80 grams 2RF trazodone 50 mg PO BEDTIME 30 tabs 5RF
[2024-06-12 14:01] VITALS: BP 106/62; PULSE 91; O2SAT 97; BMI 21.8
== END 2024-06-12 14:22 | disposition home or self-care (01) ==
PROVIDERS: PCP Physician Assistant; Visit Provider Physician Assistant
DX: G47.00 Insomnia, unspecified (principal); F41.1 Generalized anxiety disorder; G43.109 Migraine with aura, not intractable, without status migrainosus; E53.8 Deficiency of other specified B group vitamins

== ENCOUNTER 2024-08-08 10:50 | Outpatient (AMB) | payer BC, SELFPAY ==
--- NOTE | 2024-08-08 11:08 | A.OFFPC_ITS ---
Vital Signs 08/08/24 11:09 Height 5 ft 1 in Weight 119 lb BMI 22.5 BP 98/58 L Blood Pressure Location Lt brachial Position Sitting Pulse 99 Pulse Source Pulse Oximeter Pulse Oximetry (%) 100 Oxygen Delivery Method Room Air Intake Visit Reasons: follow up Intake Note: Follow up Allergies topiramate [From Topamax] Allergy (Severe, Verified 08/08/24 11:08) red spots all over and itching. Medication List - Last Reconciled 08/08/24 by Dory Guevara PA-C cyanocobalamin (vitamin B-12) ER (Vitamin B-12 ER) 1,000 mcg PO DAILY hydroxyzine HCl 25 mg PO TID PRN magnesium oxide 400 mg PO DAILY 30 days medroxyprogesterone (Depo-Provera) 150 mg IM [id number] riboflavin (vitamin B2) 400 mg PO DAILY 30 days trazodone 50 mg PO BEDTIME triamcinolone acetonide 0.025% 1 appl topical BID Tobacco use date assessed: 11/13/23 Dental Screening Dental Screen Date: 11/13/23 HPI follow up HPI Details The patient is a 23-year-old female with a hx of insomnia, MARÍA, migraines, and b12 def presenting today for a migraine follow up. Neuro: The migraines have improved but still present since starting riboflavin and magnesium. She was trialed on amitriptyline (ineffective) and Topamax (allergic reaction manifesting as a rash). -The patient reports migraines occurring about once or twice a week, lasting up to two days. Excedrin as the only thing that seems to work. She does take etc. in a few times a week. She is aware of the risk of rebound headaches. These headaches are frontally located and do not favor a particular side. Symptoms reportedly improved with magnesium and riboflavin supplements alongside B12 replenishment, which has elevated serum B12 levels from 189 to 290. An MRI was performed and considered normal. -she has an appointment with neurology carmen lu this month. Psych:The patient also experiences insomnia exacerbated by racing thoughts and a nocturnal lifestyle. The use of melatonin has been insufficient for maintaining sleep, leading to nighttime awakenings. Poor sleep correlates with headache occurrence. She denies regular use of hydroxyzine for anxiety but notes its use for pruritus of the rash. Has not helped sleep. She was trialed on trazodone which she found effective in the beginning but over the last month or so it has become less effective. She tolerates this well without any side effects in the morning. [facility] Medical History (Updated 06/12/24 @ 14:21 by Dory Guevara PA-C) Major depression in partial remission Generalized anxiety disorder Migraine headache with aura Family History Mother HTN (hypertension) Diabetes Social History (Updated 06/12/24 @ 14:03 by Awilda Nunez CMA) Housing: Apartment Alcohol intake: current Patient Tobacco Use Status: Never used Tobacco e-Cigarette/Vaping Use: Never Used Second Hand Smoke Exposure: Yes service: No Current occupational status: employed Current occupation: [employer] Current occupational exposures/hazards: No Cognitive needs: No Hearing needs: No Vision needs: No Questionnaire PHQ-9 Over the last 2 weeks, how often have you been bothered by any of the following problems? 1. Little interest or pleasure in doing things: several days 2. Feeling down, depressed, or hopeless: not at all 3. Trouble falling or staying asleep, or sleeping too much: more than half the days 4. Feeling tired or having little energy: several days 5. Poor appetite or overeating: not at all 6. Feeling bad about yourself - or that you are a failure or have let yourself or your family down: not at all 7. Trouble concentrating on things, such as reading the newspaper or watching television: not at all 8. Moving or speaking so slowly that other people could have noticed. Or the opposite - being so fidgety or restless that you have been moving around a lot more than usual: not at all 9. Thoughts that you would be better off or of hurting yourself in some way: not at all Total score: 4 Depression Screening Interpretation: Positive Depression Screening Follow-up: Existing condition and Change in Medication Depression Screening Done: Yes 07006 - PHQ-9 Billing: Yes Source: Developed by Drs. Amos Sena, Amy Pritchett, Ever Quintanilla and colleagues, with an educational tomas from [employer]. Thrive Questionnaire Date Thrive assessed: 08/08/24 I am a: Patient What is your living situation today?: I have a steady place to live Within the past 12 months, did the food you bought not last and you didn't have the money to get more?: Never true Within the past 12 months, did you worry whether your food would run out before you got money to buy more?: Never true Do you have trouble paying for medicines?: No Do you have trouble getting transportation to medical appointments?: No Do you have trouble paying your heating and electricity bill?: No Do you have trouble taking care of your child, family member or friend?: No Do you have trouble with day-to-day activities such as bathing, preparing meals, shopping, managing finances, etc.?: No Are you currently unemployed and looking for a job?: No Are you interested in more education?: No Please select the resources that you would like help with: None Currently or been in a relationship where the following occur: No concerns reported THRIVE Score: 0 AUDIT C Alcohol Use Questionnaire (AUDIT-C) 1. How often do you have a drink containing alcohol?: Monthly or less 2. How many drinks containing alcohol do you have on a typical day when you are drinking?: 1 or 2 3. How often do you have six or more drinks on one occasion?: Never Total Score: 1 Score Reviewed/Action Taken: Yes MARÍA-7 AMB Questionnaire MARÍA-7 Date MARÍA - 7 assessed: 11/13/23 Feeling nervous, anxious, or on edge: 0 = Not at all Not being able to stop or control worryin = Several days Worrying too much about different things: 3 = Nearly every day Trouble relaxin = Not at all Being so restless that it is hard to sit still: 0 = Not at all Becoming easily annoyed or irritable: 0 = Not at all Feeling afraid as if something awful might happen: 1 = Several days Total MARÍA-7 score (0-4 normal; 5-9 mild; 10-14 moderate; 15-21 severe): 5 Source: Developed by Drs. Amos Sena, Amy Pritchett, Ever Quintanilla and colleagues, with an educational tomas from [employer] MARÍA-7 Assessment Billing MARÍA-7 Assessment Tool: MARÍA-7 Assessment 98733 Physical exam (Primary Care) Vital Signs: Last Vital Signs Pulse 99 08/08/24 11:09 BP 98/58 L 08/08/24 11:09 Pulse Ox 100 08/08/24 11:09 Oxygen Delivery Method Room Air 08/08/24 11:09 BMI result Body Mass Index 22.5 Tobacco/Smoking Status: Tobacco use Status Tobacco use date assessed 11/13/23 08/08/24 11:11 Patient Tobacco Use Status Never used Tobacco 08/08/24 11:11 e-Cigarette/Vaping Use Never Used 08/08/24 11:11 PHQ-9: PHQ-9 Score PHQ-9: Total score 4 08/08/24 11:11 Depression Screening Interpretation: Positive Depression Screening Follow-up: Existing condition and Change in Medication Thrive Assessment: Date of Thrive Assessment Date Thrive assessed 08/08/24 08/08/24 11:11 Currently or been in a relationship where the following occur: No concerns reported Results Reviewed Results Reviewed: MR/MR head/brain wo con IMPRESSION: 1. No acute intracranial abnormalities. 2. No MRI abnormalities to explain the patient's symptoms.Laboratory Tests 04/04/24 15:52 WBC 5.0 RBC 4.56 Hgb 14.2 Hct 41.5 Plt Count 224 Sodium 141 Potassium 3.7 Chloride 107 Carbon Dioxide 25 Anion Gap 13 Creatinine 0.77 Estimated GFR > 60 Random Glucose 69 Calcium 9.8 Magnesium 2.2 Iron 101 AST 16 ALT 19 Alkaline Phosphatase 57 Total Protein 7.5 Albumin 4.6 Vitamin B12 290 Folate 11.5 TSH 2.53 Coding Level of Care Code Est Pt Level 4 (11807) Complex EM visit Add On G2211 Diagnoses Migraine with aura and without status migrainosus, not intractable G43.109 Status migrainosus presence: without status migrainosus Intractability: not intractable Recurrent major depressive disorder, in partial remission F33.41 Major depression recurrence: recurrent Insomnia G47.00 B12 deficiency E53.8 Additional Codes PHQ-9 - 57507 - PHQ-9 Billing: Yes ([id number]) MARÍA-7 Assessment Billing - MARÍA-7 Assessment Tool: MARÍA-7 Assessment 08213 ([id number]) Assessment & Plan Assessment & Plan (1) Migraine headache with aura: Code(s): G43.109 - Migraine with aura, not intractable, without status migrainosus Category: Medical Qualifiers: Status migrainosus presence: without status migrainosus Intractability: not intractable Qualified Code(s): G43.109 - Migraine with aura, not intractable, without status migrainosus Plan: We will try Imitrex to use as needed for headaches. Did discuss risks and benefits and adverse effects of this medication. (2) Major depression in partial remission: Code(s): F32.4 - Major depressive disorder, single episode, in partial remission Category: Medical Qualifiers: Major depression recurrence: recurrent Qualified Code(s): F33.41 - Major depressive disorder, recurrent, in partial remission Plan: Currently well-controlled. We will increase trazodone. Discussed risks and benefits and adverse effects of this medication. Reviewed that this is an SSRI. (3) Insomnia: Code(s): G47.00 - Insomnia, unspecified Category: Medical Plan: increase trazodone (4) B12 deficiency: Code(s): E53.8 - Deficiency of other specified B group vitamins Category: Medical Plan: Continue supplementation. We will check labs. Orders: Orders Magnesium Today E53.8 - Deficiency of other specified B group vitamins, F33.41 - Major depressive disorder, recurrent, in partial remission, G43.109 - Migraine with aura, not intractable, without status migrainosus, G47.00 - Insomnia, unspecified Complete Blood Count Auto Diff Today E53.8 - Deficiency of other specified B group vitamins, F33.41 - Major depressive disorder, recurrent, in partial remission, G43.109 - Migraine with aura, not intractable, without status migrainosus, G47.00 - Insomnia, unspecified Comprehensive Met. Panel Today E53.8 - Deficiency of other specified B group vitamins, F33.41 - Major depressive disorder, recurrent, in partial remission, G43.109 - Migraine with aura, not intractable, without status migrainosus, G47.00 - Insomnia, unspecified Vitamin B12 and Folate Today E53.8 - Deficiency of other specified B group vitamins, F33.41 - Major depressive disorder, recurrent, in partial remission, G43.109 - Migraine with aura, not intractable, without status migrainosus, G47.00 - Insomnia, unspecified Medications: New sumatriptan succinate take 1 tab at onset of headache; if no relief may repeat 1 tab after at least 2 hrs; max = 4 tabs/24 hr PO 10 tabs 0RF trazodone 100 mg PO BEDTIME 90 tabs 0RF Discontinued trazodone Discontinued Reason: Doctor's Order 50 mg PO BEDTIME 30 tabs 5RF
[2024-08-08 11:09] VITALS: BP 98/58; PULSE 99; O2SAT 100; BMI 22.5
== END 2024-08-08 11:36 | disposition home or self-care (01) ==
PROVIDERS: PCP Physician Assistant; Visit Provider Physician Assistant
DX: G43.109 Migraine with aura, not intractable, without status migrainosus (principal); F33.41 Major depressive disorder, recurrent, in partial remission; G47.00 Insomnia, unspecified; E53.8 Deficiency of other specified B group vitamins

== ENCOUNTER → 2024-08-08 10:50 | Outpatient (BNVA) | payer BC, SELFPAY | PROVIDERS: PCP Physician Assistant; Visit Provider Physician Assistant | DX: G43.109 Migraine with aura, not intractable, without status migrainosus (principal); F33.41 Major depressive disorder, recurrent, in partial remission; G47.00 Insomnia, unspecified; E53.8 Deficiency of other specified B group vitamins; Z79.899 Other long term (current) drug therapy | CPT/HCPCS: 96127 ==

== ENCOUNTER 2024-08-08 11:49 | Outpatient (REF) | payer BC, SELFPAY ==
[2024-08-08 14:01] LABS: MANUAL DIFF FLAG NO
[2024-08-08 14:10] LABS: Basophils Absolute Auto 0.1 X10*3/uL (0.0-0.2); Basophils Percent Auto 0.9 % (0-2); Eosinophils Absolute Auto 0.1 X10*3/uL (0.0-0.4); Eosinophils Percent Auto 0.9 % (0-4); Hematocrit 40.1 % (37.0-47.0); Hemoglobin 13.6 g/dl (12.0-16.0); Imm Gran Abs Auto 0.01 X10*3/uL (0.00-0.03); Imm Gran Pct Auto 0.2 % (0.0-0.4); Lymphocytes Absolute Auto 1.7 X10*3/uL (1.2-4.9); Mean Corpuscular HGB Conc 33.9 g/dl (31.0-35.0); Mean Corpuscular Hemoglobin 31.2 pg (27.0-33.0); Monocytes Absolute Auto 0.3 X10*3/uL (0.1-1.2); Monocytes Percent Auto 6.1 % (2-11); Neutrophils Absolute Auto 3.2 x10*3/uL (2.0-8.3); Neutrophils Percent Auto 59.9 % (45-73); Platelet Count 215 X10*3/uL (160-400); Red Blood Count 4.36 X10*6/uL (4.20-5.50); Red Cell Distribution Width 12.4 % (11.0-16.0); White Blood Count 5.4 X10*3/uL (4.8-10.8)
[2024-08-08 14:19] LABS: Alanine Aminotransferase 25 U/L (0-31); Albumin Level 4.5 g/dL (3.5-5.0); Alkaline Phosphatase 54 U/L (39-117); Anion Gap 7 (12-20); Aspartate Amino Transferase 22 U/L (5-31); Bilirubin Total 0.5 mg/dL (0.0-1.0); Blood Urea Nitrogen 9 mg/dL (9-16); Calcium 9.1 mg/dL (8.4-10.2); Carbon Dioxide 27 mmol/L (22-29); Chloride 111 mmol/L (96-108); Estimated Glomerular Filt Rate > 60; Glucose Random 83 mg/dL (60-115); Magnesium 1.8 mg/dL (1.6-2.6); Potassium 3.9 mmol/L (3.3-5.1); Sodium 141 mmol/L (135-145); Total Protein 7.6 g/dL (6.5-8.0)
[2024-08-08 14:53] LABS: Folate 12.1 ng/mL (> or = 4.0); Vitamin B12 241 pg/mL (200-900)
== END 2024-08-08 11:50 | disposition home or self-care (01) ==
LOC: HO.WFDLDS 11:49
PROVIDERS: Visit Provider Physician Assistant
DX: G47.00 Insomnia, unspecified (principal); E53.8 Deficiency of other specified B group vitamins; F33.41 Major depressive disorder, recurrent, in partial remission; G43.109 Migraine with aura, not intractable, without status migrainosus
CPT/HCPCS: 36415; 80053; 82607; 82746; 83735; 85025

== ENCOUNTER 2024-11-28 13:53 | Outpatient (AMB) | payer BC, SELFPAY ==
--- NOTE | 2024-11-28 14:04 | A.OFFPC_ITS ---
Vital Signs 11/28/24 14:06 Height 5 ft 1 in Weight 116 lb 6 oz BMI 22.0 BP 104/62 Blood Pressure Location Rt brachial Position Sitting Respiration 12 Pulse 79 Pulse Source Pulse Oximeter Pulse Oximetry (%) 99 Oxygen Delivery Method Room Air Intake Visit Reasons: insomnia,resched Intake Note: Migraines and insomnia follow up Bar Host/Hostess Required: No Allergies topiramate [From Topamax] Allergy (Severe, Verified 11/28/24 14:04) red spots all over and itching. Medication List - Last Reconciled 11/28/24 by Dory Guevara PA-C cyanocobalamin (vitamin B-12) ER (Vitamin B-12 ER) 1,000 mcg PO DAILY magnesium oxide 400 mg PO DAILY 30 days medroxyprogesterone (Depo-Provera) 150 mg IM [id number] riboflavin (vitamin B2) 400 mg PO DAILY 30 days sumatriptan succinate take 1 tab at onset of headache; if no relief may repeat 1 tab after at least 2 hrs; max = 4 tabs/24 hr PO triamcinolone acetonide 0.025% 1 appl topical BID Tobacco use date assessed: 11/28/24 Dental Screening Dental Screen Date: 11/28/24 Did you have a dental visit in the last 12 months?: No Did you have a dental problem in the last 6 months where you did not have access to dental care?: No Was dental information given to patient?: Patient has dentist HPI insomnia,resched HPI Details The patient is a 23-year-old female with a hx of insomnia, MARÍA, migraines, and b12 def presenting today for a follow up. Neuro: The migraines have improved but still present since starting riboflavin and magnesium. She was trialed on amitriptyline (ineffective) and Topamax (allergic reaction manifesting as a rash). Currently on sumatriptan as needed. She states that she mainly treats her headaches with Excedrin. She is aware of the risk of rebound headaches. -The patient reports migraines occurring about once or twice a week, lasting up to two days. Excedrin as the only thing that seems to work. She does take etc. in a few times a week. These headaches are frontally located and do not favor a particular side. Symptoms reportedly improved with magnesium and riboflavin supplements alongside B12 replenishment, which has elevated serum B12 levels from 189 to 290. An MRI was performed and considered normal. She missed her appointment with Neurology and had to reschedule but unfortunately, has had a hard time contacting them. Psych: The patient also experiences insomnia exacerbated by racing thoughts and a nocturnal lifestyle. She says that she does generally have some anxiety as well and thinks that that contributes to the insomnia. The use of melatonin has been insufficient for maintaining sleep, leading to nighttime awakenings. Poor sleep correlates with headache occurrence. She was trialed on trazodone which she found effective in the beginning but with the higher dose feels dizzy with it. She does not feel well with this in the morning. She feels a little out of it. Amitriptyline was ineffective. Hydroxyzine at the 25 mg was not very effective but better than the other medications. COUNTS INCLUDE 234 BEDS AT THE [facility] Medical History (Updated 11/28/24 @ 14:24 by Dory Guevara PA-C) Major depression in partial remission Generalized anxiety disorder Migraine headache with aura Family History Mother HTN (hypertension) Diabetes Social History (Updated 11/28/24 @ 14:11 by Awilda Nunez CMA) Housing: Apartment Alcohol intake: current Patient Tobacco Use Status: Never used Tobacco e-Cigarette/Vaping Use: Never Used Second Hand Smoke Exposure: Yes service: No Current occupational status: employed Current occupation: [employer] Current occupational exposures/hazards: No Cognitive needs: No Hearing needs: No Vision needs: No Questionnaire PHQ-9 Over the last 2 weeks, how often have you been bothered by any of the following problems? 1. Little interest or pleasure in doing things: not at all 2. Feeling down, depressed, or hopeless: not at all 3. Trouble falling or staying asleep, or sleeping too much: nearly every day 4. Feeling tired or having little energy: several days 5. Poor appetite or overeating: not at all 6. Feeling bad about yourself - or that you are a failure or have let yourself or your family down: not at all 7. Trouble concentrating on things, such as reading the newspaper or watching television: not at all 8. Moving or speaking so slowly that other people could have noticed. Or the opposite - being so fidgety or restless that you have been moving around a lot more than usual: not at all 9. Thoughts that you would be better off or of hurting yourself in some way: not at all Total score: 4 Depression Screening Interpretation: Positive Depression Screening Follow-up: New Medication prescribed Depression Screening Done: Yes 74660 - PHQ-9 Billing: Yes Source: Developed by Drs. Amos Sena, Amy Pritchett, Ever Quintanilla and colleagues, with an educational tomas from [employer]. Thrive Questionnaire Date Thrive assessed: 11/28/24 I am a: Patient What is your living situation today?: I have a steady place to live Within the past 12 months, did the food you bought not last and you didn't have the money to get more?: Never true Within the past 12 months, did you worry whether your food would run out before you got money to buy more?: Never true Do you have trouble paying for medicines?: No Do you have trouble getting transportation to medical appointments?: No Do you have trouble paying your heating and electricity bill?: No Do you have trouble taking care of your child, family member or friend?: No Do you have trouble with day-to-day activities such as bathing, preparing meals, shopping, managing finances, etc.?: No Are you currently unemployed and looking for a job?: No Are you interested in more education?: No Please select the resources that you would like help with: None Currently or been in a relationship where the following occur: No concerns reported THRIVE Score: 0 AUDIT C Alcohol Use Questionnaire (AUDIT-C) 1. How often do you have a drink containing alcohol?: Never 3. How often do you have six or more drinks on one occasion?: Never Total Score: 0 MARÍA-7 AMB Questionnaire MARÍA-7 Date MARÍA - 7 assessed: 11/13/23 Feeling nervous, anxious, or on edge: 0 = Not at all Not being able to stop or control worryin = Several days Worrying too much about different things: 3 = Nearly every day Trouble relaxin = Not at all Being so restless that it is hard to sit still: 0 = Not at all Becoming easily annoyed or irritable: 0 = Not at all Feeling afraid as if something awful might happen: 0 = Not at all Total MARÍA-7 score (0-4 normal; 5-9 mild; 10-14 moderate; 15-21 severe): 4 Source: Developed by Drs. Amos Sena, Amy Pritchett, Ever Quintanilla and colleagues, with an educational tomas from [employer]. MARÍA-7 Assessment Billing MARÍA-7 Assessment Tool: MARÍA-7 Assessment 87797 Physical exam (Primary Care) Vital Signs: Last Vital Signs Pulse 79 11/28/24 14:06 Resp 12 11/28/24 14:06 BP 104/62 11/28/24 14:06 Pulse Ox 99 11/28/24 14:06 Oxygen Delivery Method Room Air 11/28/24 14:06 BMI result Body Mass Index 22.0 Tobacco/Smoking Status: Tobacco use Status Tobacco use date assessed 11/28/24 11/28/24 14:10 Patient Tobacco Use Status Never used Tobacco 11/28/24 14:11 e-Cigarette/Vaping Use Never Used 11/28/24 14:11 PHQ-9: PHQ-9 Score PHQ-9: Total score 4 11/28/24 14:20 Depression Screening Interpretation: Positive Depression Screening Follow-up: New Medication prescribed Thrive Assessment: Date of Thrive Assessment Date Thrive assessed 11/28/24 11/28/24 14:10 Currently or been in a relationship where the following occur: No concerns reported Const Orientation/consciousness: patient oriented x3 HENMT Ears: hearing grossly normal bilaterally Neck Thyroid: Thyroid normal Lymphatic: no lymphadenopathy noted Resp Auscultation: clear to auscultation bilaterally Cardio Rate: regular rate Rhythm: regular rhythm Heart sounds: S1 normal heart sound present and S2 normal heart sound present GI Inspection: Yes normal to inspection Palpation (GI): Soft to palpation and Other GI palpation findings present (nontender, no cva tenderness) Auscultation: normoactive bowel sounds Rectal Exam - Female: deferred Skin General skin exam: no rashes or lesions noted Neuro General: patient oriented x3, gait normal and no focal motor deficits Coding Level of Care Code Est Pt Level 4 (22947) Complex EM visit Add On G2211 Diagnoses Migraine with aura and without status migrainosus, not intractable G43.109 Intractability: not intractable Status migrainosus presence: without status migrainosus Insomnia G47.00 Fatigue R53.83 Recurrent major depressive disorder, in partial remission F33.41 Major depression recurrence: recurrent Generalized anxiety disorder F41.1 Additional Codes MARÍA-7 Assessment Billing - MARÍA-7 Assessment Tool: MARÍA-7 Assessment 77908 ([id number]) PHQ-9 - 82052 - PHQ-9 Billing: Yes ([id number]) Assessment & Plan Assessment & Plan (1) Migraine headache with aura: Code(s): G43.109 - Migraine with aura, not intractable, without status migrainosus Category: Medical Qualifiers: Intractability: not intractable Status migrainosus presence: without status migrainosus Qualified Code(s): G43.109 - Migraine with aura, not intractable, without status migrainosus Plan: Phone number provided to Neurology. We will try to focus on sleep quality to see if that will improve some of the headaches. (2) Insomnia: Code(s): G47.00 - Insomnia, unspecified Category: Medical Plan: We will try hydroxyzine. (3) Fatigue: Code(s): R53.83 - Other fatigue Category: Medical Plan: Labs ordered. We will follow up pending test results. (4) Major depression in partial remission: Code(s): F32.4 - Major depressive disorder, single episode, in partial remission Category: Medical Qualifiers: Major depression recurrence: recurrent Qualified Code(s): F33.41 - Major depressive disorder, recurrent, in partial remission Plan: We will treat with Lexapro. Discussed risks and benefits and adverse effects of this medication. Short term follow up arranged. Sooner if needed. (5) Generalized anxiety disorder: Code(s): F41.1 - Generalized anxiety disorder Category: Medical Plan: As above Orders: Orders Complete Blood Count Auto Diff Today G43.109 - Migraine with aura, not intractable, without status migrainosus, G47.00 - Insomnia, unspecified, R53.83 - Other fatigue Vitamin B12 and Folate Today G43.109 - Migraine with aura, not intractable, without status migrainosus, G47.00 - Insomnia, unspecified, R53.83 - Other fatigue Ferritin Today G43.109 - Migraine with aura, not intractable, without status migrainosus, G47.00 - Insomnia, unspecified, R53.83 - Other fatigue IRON PROFILE Today G43.109 - Migraine with aura, not intractable, without status migrainosus, G47.00 - Insomnia, unspecified, R53.83 - Other fatigue Comprehensive Met. Panel Today G43.109 - Migraine with aura, not intractable, without status migrainosus, G47.00 - Insomnia, unspecified, R53.83 - Other fatigue TSH reflex Free T4 Today G43.109 - Migraine with aura, not intractable, without status migrainosus, G47.00 - Insomnia, unspecified, R53.83 - Other fatigue Vitamin D 25-OH Total Today G43.109 - Migraine with aura, not intractable, without status migrainosus, G47.00 - Insomnia, unspecified, R53.83 - Other fatigue Referrals Sleep Medicine Referral G43.109 - Migraine with aura, not intractable, without status migrainosus, G47.00 - Insomnia, unspecified, R53.83 - Other fatigue Medications: New hydroxyzine HCl 50 mg PO BEDTIME 90 tabs 1RF escitalopram oxalate (Lexapro) 5 mg PO DAILY 90 tabs 1RF
[2024-11-28 14:06] VITALS: BP 104/62; PULSE 79; RESP 12; O2SAT 99; BMI 22.0
--- OUTSIDE RECORDS SUMMARY | 2024-11-28 14:50 | XMS_ITS | Clinical Summary ---
Author Organization [facility] Address [address] [place] [id number] Phone Care Team Providers Care Receivable Executive Name Role Phone Unavailable Primary Care Provider Unavailabl e Allergies Active Allergy Reactions Criticality Noted Date Comments Topiramate Itching Low 08/26/2021 Skin itching only starting on day 2. No hives. No anaphylaxis. Medications medroxyPROGESTERon e 150 MG/ML injectionIndicatio ns:Encounter for Depo-Provera contraception Inject 1 mL (150 mg total) into the muscle every 3 (three) months. 1 mL 4 3 Active amitriptyline 50 MG tabletIndications: Migraine without aura and without status migrainosus, not intractable Take 1 tablet (50 mg total) by mouth every evening. 30 tablet 2 4 Active Active Problems Problem Noted Date Diagnosed Date COVID-19 vaccination refused 10/22/2021 Overview (10/22/2021): 10/22/2021 (age 21yr): Liat 's refused booster vaccination despite strong recommendation for immunization during the covid 19 pandemic. Encounter for Depo-Provera contraception 021 Overview (08/30/2023): 08/30/2023 (age 22yr): : has been on depo provera in the past ad would like to restart. Pt not eligible for estrogen containing control base on migraine with aura. LMP was not in in the last 5 days ( Was too late today to received depo). Med was returned to her possession. - [facility] as pt is turning 23 in 1 month Detailed History and Chronology of care: 11/15/2021 (age 21yr): Doing well on depo, started 06/2020. Take vit D/calcium, gets exercise. + SA, just broke up with BF. \ 02/22/2022 (age 21yr): would like to take a break from taking depo. She is not SA. We discussed the need to restart BC if SA. Assessment & Plan (08/30/2023 12:30 PM EST): 08/30/2023 (age 22yr): : has been on depo provera in the past ad would like to restart. Pt not eligible for estrogen containing control base on migraine with aura. LMP was not in in the last 5 days ( Was too late today to received depo). Med was returned to her possession. - [facility] as pt is turning 23 in 1 month Assessment & Plan (08/16/2023 4:35 PM EST): 08/16/2023 (age 22yr): has been on depo provera in the past ad would like to restart. Pt not eligible for estrogen containing control base on migraine with aura. LMP was not in in the last 5 days (07/20). Menses is not regular about once per month. Liat brought her depo Rx with her today. - will keep depo Rx here until Liat get her next period - next dose will be with an adult provider Assessment & Plan (05/30/2023 9:25 AM EST): 05/30/2023 (age 22yr): would like to restart depo. Rx sent, pt to follow when menses start. Pt not eligible for estrogen containing control base on migraine with aura. Assessment & Plan (02/22/2022 5:19 PM EDT): 02/22/2022 (age 21yr): would like to take a break from taking depo. She is not SA. We discussed the need to restart BC if SA. Assessment & Plan (11/15/2021 3:38 PM EDT): 11/15/2021 (age 21yr): Doing well on depo, started 06/2020. Take vit D/calcium, gets exercise. + SA, just broke up with BF. Assessment & Plan (08/26/2021 3:45 PM EST): 08/26/2021 (age 20yr): Doing well on depo, started 06/2020. Take vit D/calcium, gets exercise. + SA, intermittent condoms (discussed). Assessment & Plan (03/19/2021 4:33 PM EDT): 03/19/2021 (age 20yr): doing well with depo, no spotting, taking Ca and Vit D. Assessment & Plan (01/01/2021 4:37 PM EDT): 01/01/2021 (age 20yr): doing well with depo, no spotting, taking Ca and Vit D. Assessment & Plan (10/12/2020 4:09 PM EDT): 10/12/2020 (age 20yr): doing well on depo, started 06/2020.. Encouraged condom use, ca/vit D supplementation. Follow up 3 months. Special educational needs 04/30/2019 Overview (04/30/2019): Has been in smaller classroom for years, now moving to more inclusion. Mom very good about her progress and the support of the school. Assessment & Plan (10/20/2020 4:10 PM EDT): 10/20/2020 (age 20yr): doing well in school, now in 12th grade. Migraine with aura and witho ut status migrainosus, not intractable 02/06/2019 Overview (08/30/2023): 08/30/2023 (age 22yr): Doing well on ampitriptylne 50 qd. LAM is 1 q 2 weeks, variable severity. Excedrine and sleep help. - recommend hydration, sleep, regular meals, daily exercise. - Will consider hypnosis - Last Rx today amitryptilline 30 mg w 2 RF. - needs to follow up with adult, PCP, is turning 23 in 1 month - pt is aware no further refills or visits once she is 23. Detailed History and Chronology of care: 04/2018: Migraine generally well controlled on amitriptyline 12.5mg until fall 2017 when pt began to have some symptoms of anxiety and depression. Dose was increased to amitryptilline 25 mg with good effect 11/2018: Started SSRI (prozac first, then Zoloft) 12/30/2019 still on amitriptyline and SSRI. migraines are worse, needs OV in a few weeks to eval. 05/18/2020: Referred to Dr. Pressley for hypnosis. 01/01/2021 (age 20yr): Increased amitryptilline from 25 mg to 37.5 mg to ongoing headaches. Pt finds the amitriptyline helps her sleep. Consider Topamax if a change is needed. 03/19/2021 (age 20yr): Migraine headache without aura, had been well controlled with amitriptyline 37.5 mg mg 08/17/2021 (age 20yr): No longer controlled with amitriptyline 37.5 Start Topiramate 12.5 mg daily. 08/23/2021: globalized itching with topiramate, rx stopped, 08/26/2021 (age 20yr): will go back to amitriptyline at 50 mg. Assessment & Plan (08/30/2023 12:28 PM EST): 08/30/2023 (age 22yr): Doing well on ampitriptylne 50 qd. LAM is 1 q 2 weeks, variable severity. Excedrine and sleep help. - recommend hydration, sleep, regular meals, daily exercise. - Will consider hypnosis - Last Rx today amitryptilline 30 mg w 2 RF. - needs to follow up with adult, PCP, is turning 23 in 1 month - pt is aware no further refills or visits once she is 23. Assessment & Plan (05/30/2023 9:41 AM EST): 05/30/2023 (age 22yr): Having migraines more often, 'more than 1/2 the days', thinks LAM are stress related, work is stressful and is looking for a new job. Is taking ampitriptylne 50 qd. No change in LAM quality. They will last 1 day at time. Rare aura - bright flashes - will hope that decreased stress level with new job will help - recommend hydration, sleep, regular meals, daily exercise. - Will consider hypnosis - Follow up to discuss treatment Assessment & Plan (02/22/2022 5:18 PM EDT): 01/21/2022 (age 21yr): LAM on increased dose of amitryptilline 50 since 08/26/2021 are improved. Long history of migraine LAM, on meds starting prior to 2017. Excedrin and sleep helps with migraines. Had global itching with Topiramate 12.5 mg daily 08/17/2021. Recent increase in LAM associate with increase stress, decrease water intake and daily Exedrin. LAM improved with improved habits. Had reported vertigo with last LAM. - continue amitriptyline 50 mg - Has appt with DG 03/16 for hypnosis - continuehydration - avoid taking Excedrin daily - f/u 4-6 months. Assessment & Plan (01/21/2022 9:11 AM EDT): 01/21/2022 (age 21yr): LAM on increased dose of amitryptilline 50 since 08/26/2021 are improved, now having migraine once every 2 months. Have tension type LAM almost daily, taking Excedrin regularly though stopped 1 week ago and no LMA x 2 days. Stress level has been moderate and Liat is not drinking enough water. Long history of migraine LAM, on meds starting prior to 2017. Excedrin and sleep helps with migraines. Had global itching with Topiramate 12.5 mg daily 08/17/2021. - continue amitriptyline 50 mg - Refer to Dr. Pressley for hypnosis - encourage hydration - avoid taking Excedrin daily - f/u 1 month Assessment & Plan (11/15/2021 3:33 PM EDT): 11/15/2021 (age 21yr): Need follow up for migraine in 3-4 months. Assessment & Plan (10/22/2021 12:54 PM EDT): 10/22/2021 (age 21yr): LAM on increased dose of amitryptilline 50 since 08/26/2021 are improved, though still frequent. Stress level has been moderate. Long history of migraine LAM, on meds starting prior to 2018. Excedrin and sleep help. Had global itching with Topiramate 12.5 mg daily 08/17/2021. Assessment & Plan (08/26/2021 3:44 PM EST): 08/26/2021 (age 20yr): Long history of migraine LAM, on meds starting prior to 2018. Migraine headache without aura, no longer controlled with amitriptyline 37.5 LAM are daily with photophobia, Excedrin and sleep help. Had global itching with Topiramate 12.5 mg daily 08/17/2021. Will go back to amitriptyline at increased dose of 50 mg. Liat will work on improving her stress level and self care. Follow up already scheduled for 09/21. Assessment & Plan (08/17/2021 9:00 PM EST): 08/17/2021 (age 20yr): Long history of migraine LAM, on meds starting prior to 2018. Migraine headache without aura, no longer controlled with amitriptyline 37.5 LAM are daily with photophobia, Excedrin and sleep help. Start Topiramate 12.5 mg daily, can use melatonin for sleep since amitriptyline had helped with sleep before. Follow up 1 month. Can increase Topiramate to 25 mg if needed. Assessment & Plan (03/19/2021 4:41 PM EDT): 03/19/2021 (age 20yr): Migraine headache without aura, had been well controlled with amitriptyline 25 mg. Migraines not well controlled as of 01/01/2021, increased amitriptyline to 37.5 mg (1.5 25 mg tabs). Pt lost to follow up after that, has been taking amitriptyline. Today Liat reports that her migraines are much better. She's having minor headaches (baby headaches).every once in a while (ever 1-3 weeks or less). Excedrin or sleep helps with headaches. She admits she's stress and exhausted from work. Consider Topamax if a change is needed. Follow up 6 months. Assessment & Plan (01/01/2021 5:00 PM EDT): 01/01/2021 (age 20yr): Migraines have been about twice per week, not severe. Able to function through the migraine. Uses OC meds (excedrine), hot bath or sleep helps. LAM lasts 1 hour to 2 days. She feels like she has a headache at least 1/2 the time. Headaches can be in various areas, pounding. +phono/photo phobia. Will feel shaky and dizzy. No aura. Still taking amitriptyline 25 mg daily, not missing doses.. We discussed changing to Topamax rather than increasing the amitriptyline dose, but Liat finds that the sedative effect of the amitriptyline helps her sleep. - try increasing ,otriptiplline dosage from 25 mg qhs to 37.5 mg (1.5 tabs) qhs. - follow up 4-6 weeks Assessment & Plan (10/20/2020 4:06 PM EDT): 10/20/2020 (age 20yr): - needs follow up for migraines, will schedule today. Assessment & Plan (10/12/2020 4:11 PM EDT): 10/12/2020 (age 20yr): Had been planning to see Dr. Pressley for hypnosis, but isn't interested right now. Migraines have been a problem. Liat needs a follow up for migrain and also anxiety/depression. Can discuss both in one visit. Assessment & Plan (05/18/2020 4:56 PM EDT): 05/18/2020 (age 19 yr 7 mo): Her migraines are still bothering her. She is getting them 2-3 times per week. She has been taking her meds every day. She recently had a bad one, she thinks stress is when they come the most. Plan to continue amitriptyline for now, refer to Dr. Pressley for hypnosis. Would consider change to Topamax in the future. Assessment & Plan (12/30/2019 3:59 PM EDT): 12/30/2019 Liat reports increasing migraines despite taking amitryptilne daily. Also, she is not sleeping well (she had been depending on that SE to help her sleep. She is starting work soon at [employer] again, and I hope that this will help her get on a schedule, sleep better, and help with migraines. I suggest in person visit to discuss her issues. Assessment & Plan (10/15/2019 1:21 PM EDT): 10/15/2019 has been out of amitryptilline x 4 days. Has been have more headaches with out meds, but it's not severe. Assessment & Plan (04/30/2019 4:14 PM EDT): It sounds like you are doing well. Continue with amitriptyline 25 mg daily. Assessment & Plan (03/04/2019 3:21 PM EDT): Still under good control Assessment & Plan (02/11/2019 11:52 AM EDT): Previous chart summary: Was well controlled on amitriptyline 10 mg qd for years. 05/20/18 - Increased frequency (daily), likely due to increased stress in school (fewer LAM on weekends). Amitriptyline increased to 25 mg. 11/27/18 - visit for depression/anxiety and headaches still poor control. Started prozac up t 20 mg. Discussed with [facility] - ok to use low dose SSRI with low dose amitriptyline. 12/03/18 - LAM, depression and anxiety all starting to lift, though it may have been too early to see med effect. F/U suggest for end of November - unsure if pt was seen again. Pt may have been lost to follow up, and needs follow up on all issues. Would consider Topamax if LAM persist. Counseling would be of benefit. Today: Overall doing better on amitriptyline 25mg tab qd. Has enough med at home. LAM 2/month. Uses Excedrin migraine for LAM as needed. No aura. Anxiety and depression 02/06/2019 Overview (11/15/2021): 10/22/2021 (age 21yr): GAD7 is 10 today, having stress at work which is causing some anxiety. Not interested in restarting meds. Liat has had a therapist in the past and could go back. I encouraged to her to reach out if needed. Liat was treated with zoloft 25 mg since 04/2019 - 05/2020. 11/15/2021 (age 21yr): Just broke up with BF. Liat is upset but coping. History: 11/30/18: Prozac 10mg started for anxiety with new onset comorbid depression, no significant effect. 02/11/19: Increased to prozac to 20 mg. No significant effect noted by pt. 04/01/19: Increased prozec to 30 mg. Has not noted any effect from prozac. Mom on zoloft with good effect. Started with therapist 03/2019. Yarelis Prasad in [place] q o week. 04/30/19: Started zoloft at 12.5 mg 05/14/2019: Feeling worse, no SI. Increased zoloft to 25 mg with excellent effect. 12/30/2019: Worsening symptoms during the covid 19 pandemic (depression especially). Still in counseling ] 05/18/2020: Feeling better, has new boyfriend. 07/23/2020 (age 19 yr 9 mo): Call for refill but last Rx was a 05/11/2020 #30 no RF. Pt not taking meds as Rx'd Virtual visit for 08/28/2019 to discuss. 05/2020 stopped zoloft due to running out of refills. 'I feel 100% better', not depressed, not down on myself. Being an adult has made her more motivated, excited, happy. PHQ 9 is 6, Will follow up at next visit. 01/01/2021 (age 20yr): Liat reports that she continues to feel good without zoloft. She is working and functioning well. Assessment & Plan (05/30/2023 9:34 AM EST): 05/30/2023 (age 22yr): Increasing depression scores. Liat reports some impact on er life with depression. Would like to travel more, is feel stagnated at home. Would like to see friends more. Often feels to tired from working. Has seen a therapist before, would consider going back. No SI. - is looking for a new job which might help - Will consider therapy - Has been on SSRI in the past, not interested at present. 05/25/2023 10:28 PM 10/15/2021 1:02 AM 10/20/2020 3:14 PM PHQ9 Screen(s) Score 10 1 6 1-4 = Minimal depression, 5-9 = Mild depression, 10-14 = Moderate depression, 15-19 = Moderately severe depression, 20-27 = Severe depression 05/25/2023 10:28 PM 10/15/2021 1:02 AM 05/18/2020 4:28 PM Generalized Anxiety Disorder (GAD7) MARÍA 7 Score 5 10 5 5-9 mild anxiety; 10-14 moderate anxiety; >15 severe anxiety Assessment & Plan (10/22/2021 12:55 PM EDT): 10/22/2021 (age 21yr): GAD7 is 10 today, having stress at work which is causing some anxiety. Not interested in restarting meds. Liat has had a therapist in the past and could go back. I encouraged to her to reach out if needed. Liat was treated with zoloft 25 mg since 04/2019 - 05/2020. Assessment & Plan (01/01/2021 5:01 PM EDT): 01/01/2021 (age 20yr): Liat reports that she continues to feel good without zoloft. She is working and functioning well. Assessment & Plan (10/20/2020 4:13 PM EDT): 10/20/2020 (age 20yr): Stopped zoloft 05/2020 due to running out of refills. 'I feel 100% better', not depressed, not down on myself. Being an adult has made her more motivated, excited, happy. PHQ9 is 6 - will follow up at next visit. Assessment & Plan (10/12/2020 4:10 PM EDT): 10/12/2020 (age 20yr): Had been planning to see Dr. Pressley for hypnosis for migraines, but isn't interested right now. Liat needs a follow up for migrain and also anxiety/depression. She reports her depression is improving. Can discuss both in one visit. Assessment & Plan (05/18/2020 4:55 PM EDT): 05/18/2020 (age 19 yr 7 mo): Today, Liat has been feeling a lot better. Her depression score is much lower and her anxiety score has been generally low. She just started a new relationship with a boyfriend (Larry, they met at work) Before she met him several months ago, she was feeling bad most of the time. She has also been spending more time with family. She is working at [employer]. School is hard, especially while working 4-30 hours per week. School is remote. . She is in therapy Yarelis Prasad, not seeing her every week right now. Working on getting a regular meeting day. We plant to continue the zoloft at 25 mg, she has enough med currently. Continue therapy. Work to looking to herself for strength and happiness, not others. Referring to Dr. Pressley for hypnosis for migraines. I suspect these skills could be useful for anxiety/depression as well. Assessment & Plan (12/30/2019 3:58 PM EDT): 12/30/2019: Liat is feeling excited about getting back to work. She is feeling a little bit worse that she was before. Sleeping more, and feeling a little bit more depressed. Crying more. She recently broke up with her boyfriends. Her therapist thinks her low mood is related to not seeing friends. Liat thinks that getting back to work with really help. PHQ9 is up significantly. She denies SI. She has been seeing her therapist virtually sporadically. She has not been getting any exercise. Liat has been taking her meds every day. Her headaches are worse and she's not sleeping well. I asked her to follow up in a few weeks. Perhaps starting work and getting on a schedule will help with everything. If not, we will discuss changing her headache meds and increasing her zoloft. Assessment & Plan (10/15/2019 5:51 PM EDT): 10/15/2019 (age 19 yr 0 mo): Doing well on zoloft per Filiberto, though PHQ9 and MAÍRA 7 do not reflect that. She says her moods are better. She does not miss school at all, feeling happier. School is hard - both social aspect and the workload. - suggest keep in close touh with her therapist (she is doing phone visits), get regular exercise during the pandemic and be sure to stay connected to friends. I suggest keep taking the zoloft even though school it out - I think she still needs it at this time. Follow up 3 months, sooner if needed. Assessment & Plan (06/11/2019 2:56 PM EST): Started zoloft 04/30/19 at 12.5 mg. Increased zoloft to 25 mg 4 weeks ago with excellent effect. Note pt is also taking amitriptyline for migraines, so must be aware of SSRI dosages. Follow up 2 months. Assessment & Plan (05/14/2019 5:19 PM EDT): Failed prozac over the summer 2018. Started with therapist 03/2019. Yarelis Prasad in [place] q o week. Started zoloft 04/30/19 at 12.5 mg - did not increased. At 2 week follow up feeling worse, no SI. Increased zoloft to 25 mg 05/14/19. Note pt is also taking amitriptyline for migraines, so must be aware of SSRI dosages. Assessment & Plan (04/30/2019 4:10 PM EDT): Will plan to change to zoloft 25 mg 1/2 tab x 3-4 days, then 1 tab daily. Follow up in 2 weeks. Assessment & Plan (04/01/2019 5:54 PM EDT): No significant effect of prozac noted by pt after 7 weeks. Starting with therapist Yarelis Prasad in [place] early March. Increased prozec to 30 mg on 04/01/19. Mom on zoloft with good effect, would consider zoloft if prozac not effective. I asked them to fill out release for me to speak with therapist today. Assessment & Plan (03/04/2019 3:26 PM EDT): No significant effect of prozac 20 mg yet. still having breakdowns q 2-3 weeks. Between outbursts, rapid mood swings. No SI, no cutting. Continue meds at current dose for now. Follow up 4 weeks. Has enough medication to last 4 weeks. Will call if RFs needed. Assessment & Plan (02/11/2019 12:40 PM EDT): Previous chart summary: Long history of waxing and waning anxiety, intermittenly referred to counseling over the years. Prozac 10mg started 11/30/18 for new onset comorbid depression. Pt had one follow up visit several days after starting med, and reported improved symptoms. Pt may have been lost to follow up, and needs follow up on all issues. Counseling would be of benefit. Previous PHQ9 10 - 9 Prevous MARÍA 8-5 Mood swings getting worse. Denies SI. Cries easily, get angry easily over thinking. Happens quite often ( 1/week?). Taking prozac 10mg qd. No missing doses. Working on getting a therapist. Sleep OK. + contract for [employer]. Journaling, writing, music helps. Plan: increase prozac to 20 mg qd. Follow up 2 weeks. Scoliosis 02/06/2019 Overview (02/06/2019): Limited growth potential. Follow. Resolved Problems Problem Noted Date Diagnosed Date Resolved Date Refused influenza vaccine 06/08/2021 Overview (10/22/2021): 10/22/2021 (age 21yr): accepts flu vaccine this year. Warts 10/20/2020 10/22/2021 Overview (10/22/2021): 10/20/2020 (age 20yr): multiple periungual and large plantar warts. Referred to derm. 12/16/2020 (age 20yr): No appointment made and we were not able to reach pt after several attempts. Referral closed 10/22/2021 (age 21yr): warts resolved without any treatment. Assessment & Plan (10/22/2021 12:56 PM EDT): 10/22/2021 (age 21yr): warts resolved without any treatment. Assessment & Plan (10/20/2020 4:12 PM EDT): 10/20/2020 (age 20yr): multiple periungual and large plantar warts. Referred to derm. Immunizations Immunization Administration Dates Next Due COVID-19 Moderna, monovalent , 12+ years 11/16/2020 DTaP 05/09/2008, 4,04/07/2003,02/11,2002 HPV Vaccine 9 Valent 10/22/2021 Hep A, ped/adol 04/12/2018,12/04/2015 Hep B, ped/adol 07/09/2003,2002,2002 HiB 01/05/2004, 3,01/30/2003,11/29 IPV 05/09/2008, 4,01/30/2003,11/29 Influenza, injectable, quadr ivalent, preservative free 05/30/2023,10/22/2021,07/22/2020,04/30,06/27/2018,06/29/2012 Influenza, intranasal, quadrivalent 05/09/2008 MMR 05/09/2008,01/05/2004 Meningococcal Conj (Menactra) MCV4P 07/22/2020,1 08/10/2014 Pneumococcal Conjugate 04/07/2003,01/30/2003,03/2003 Tdap 06/10/2015 Varicella 05/09/2008,10/01/2003 Family History Medical History Relation Name Comments Migraines Father Eduardo Feng Anxiety disorder Mother Fiorella Feng Bipolar disorder Mother Fiorella Feng Depression Mother Fiorella Feng Clotting disorder Neg Hx Heart attack Neg Hx Relation Name Status Comments Father Eduardo Feng Mother Fiorella Feng Sister 1 Laney Feng Sister 2 Richy Feng Alive Social History Tobacco Use Types Packs/Day Years Used Date Smoking Tobacco: Never Smokeless Tobacco: Never Hunger/Food Answer Date Recorded In the last 12 months, did y ou or your family ever eat less than you felt you should because there wasn't enough money for food? No 05/25/2023 Stable Housing Answer Date Recorded Are you worried that in the next 2 months you may not have stable housing? No 05/25/2023 Transportation Concerns Answer Date Rec orded In the last 12 months, have you or your family ever had to go without healthcare because you didn't have a way to get there? No 05/25/2023 Hazards in Home Answer Date Recorded Think about the place you li ve. Do you have problems with any of the following? Pests (mice or roaches), mold, no/not working smoke detectors, water leaks, no window guards. No 2022 Financing Utilities Answer Date Recorde d In the last 12 months, has t he electric, gas, oil, or water company threatened to shut off your services in your home? No 05/25/2023 Safety at Home Answer Date Recorded Are you or your family worried about feeling saf e in your home? No 05/25/2023 Outside Support Answer Date Recorded Do you feel that you need mo re support from other people or programs to help you care for yourself or your family? No 05/25/2023 Understanding Health Concerns Answer Da te Recorded Do you need help understandi ng your or your child's healthcare needs (diagnosis, medications, plan, etc.)? No 05/25/2023 Financing Health Concerns Answer Date R ecorded In the last 12 months, was t here a time when your child needed to see a doctor or get medications or supplies but could not because of cost? No 05/25/2023 Missing School or Work Answer Date Wade rded Did you or your child miss s chool or work because of a health problem that could have been avoided? No 05/25/2023 Comments No Sex and Gender Information Value Date Recorded Sex Assigned at Female 05/30/2023 9:22 AM EST Legal Sex Female 2:30 PM EDT Gender Identity Female 05/18/2020 3:57 PM EDT Sexual Orientation Straight 05/30/2023 9: 21 AM EST Last Filed Vital Signs Vital Sign Reading Time Taken Comments Blood Pressure 127/79 08/16/2023 3:56 PM EST Pulse 125 08/16/2023 3:56 PM EST Temperature 36.7 ??C (98 ??F) 08/16/2023 3:56 PM EST Respiratory Rate - - Oxygen Saturation - - Inhaled Oxygen Concentration - - Weight 56.2 kg (123 lb 12.8 oz) 024 11:37 AM EST Height 155.9 cm (5' 1.38 ) 05/30/2023 8:51 AM ES T Body Mass Index 23.1 05/30/2023 8:51 AM EST Plan of Treatment Health Maintenance Due Date Last Done Comments Men B Vaccine (1 of 2 - Standard) 2018 HPV Vaccines (2 - 3-dose series) 11/19/2021 10/22/2021 Influenza Vaccines (#1) 2024 05/30/20 23, 10/22/2021, 07/22/2020, Additional history exists COVID-19 Vaccine (3 - season) 2024 12/15/2020, 11/16/2020 DTaP,Tdap,and Td Vaccines (7 - Td or Tdap) 06/10/2025 06/10/2015, 05/09/2008, 04/09/2004, Additional history exists Pneumococcal Vaccine Aged Out 04/07/2003, 01/30/2003, 2002 No longer eligible based on patient's age to complete this topic Hepatitis B Vaccines Completed 07/09/2003, 2002, 2002 HIB Vaccines Completed 01/05/2004, 03/24, 01/30/2003, Additional history exists IPV Vaccines Completed 05/09/2008, 11/2003, 01/30/2003, Additional history exists MMR Vaccines Completed 05/09/2008, 01/05/2004 Varicella Vaccines Completed 05/09/2008, 10/01/2003 Hepatitis A Vaccines Completed 04/12/2018, 12/04/19 16 Meningococcal Vaccine Completed 07/22/2020, 015 Procedures * Due to [place] [email or web address] law, this organization might not be sharing sensitive test results. Procedure Name Priority Date/Time Associated Diagnosis Comments CHLAMYDIA AND GONORRHEA, AMPLIFIED Routine 05/30/2023 10:18 AM EST Screening for chlamydial disease from Last 3 Months or Most Recently Relevant to Health Maintenance Results * Due to [place] [email or web address] law, this organization might not be sharing sensitive test results. * Chlamydia and Gonorrhoea, Amplified (05/30/2023 10:18 AM EST) Chlamydia Trachomatis, DNA Probe NEGATIVE (NEG) [facility] Comment: No Chlamydia Trachomatis RNA detected in this patient's sample ? (REFERENCE RANGE/NORMAL VALUE: NOT DETECTED) ? Note: This test uses salesperson used cars- mediated amplification method to detect rRNA from C. Trachomatis URINE GC AMP PROBE NEGATIVE (NEG) [facility] Comment: No Neisseria Gonorrhoeae RNA detected in this patient's sample ? (REFERENCE RANGE/NORMAL VALUE: NOT DETECTED) ? NOTE: This test uses salesperson used cars-mediated amplification method to detect rRNA from N.Gonorrhoeae. A negative result does not preclude infection. In the case of a negative urine result, testing of an endocervical(female) or urethral (male) specimen is recommended if there is high clinical suspicion of infection. Due to very high sensitivity of Nucleic Acid Amplification Test, false positive results may occur. Therefore, specimen handling is extremely important. In patients in whom the disease is unlikely, additional sample for testing should be considered after an initial positive result. The performance characteristics of this test have not been evaluated in children. The Aptima Combo2 assay is not intended for the evaluation of suspected sexual abuse or for other medico-legal indications. The ordering provider should assess if the patient had consensual sex without risk of sexual abuse. Consult the [facility] if needed. Contact phone number . Therapeutic failure or success cannot be determined with the Aptima Combo2 assay since nucleic acid may persist following appropriate antimicrobial therapy. The Centers for Disease Control and Prevention (CDC) recommends confirmatory retesting using culture or a different nucleic acid amplification test when positive results occur, if indicated. Testing performed or reported by [facility], a Service of [facility], [address] [place] [address] Justin Santo MD, Dumper Bailer Operator [facility]# [id number] Urine (Urine) 05/30/2023 10: 18 AM EST 05/30/2023 10:20 AM EST Trang Dash MD LAB MICROBIOLOGY - GENERAL OR DERABLES Final Result [facility] from Last 3 Months or Most Recently Relevant to Health Maintenance
--- OUTSIDE RECORDS SUMMARY | 2024-11-28 14:50 | XMS_ITS | Encounter Summary ---
Author Organization [facility] Address [address] [place] [address] Phone Care Team Providers Care Washer Machine Name Role Phone Trang Dash MD Primary Care Provider [phone] Reason for Visit * Reason Onset Date Comments Med Refill 01/13/2022 Encounter Details Date Type Department Care Team ([facility] st Contact Info) Description 01/13/2022 Refill [facility] [place] [address] [place] [address] Trang Dash MD [address] [place] [address] Encounter for initial prescription of injectable contraceptive Social History Tobacco Use Types Packs/Day Years Used Date Smoking Tobacco: Never Smokeless Tobacco: Never Hunger/Food Answer Date Recorded In the last 12 months, did y ou or your family ever eat less than you felt you should because there wasn't enough money for food? No 10/15/2021 Stable Housing Answer Date Recorded Are you worried that in the next 2 months you may not have stable housing? No 10/15/2021 Transportation Concerns Answer Date Rec orded In the last 12 months, have you or your family ever had to go without healthcare because you didn't have a way to get there? No 10/15/2021 Hazards in Home Answer Date Recorded Think about the place you li ve. Do you have problems with any of the following? Pests (mice or roaches), mold, no/not working smoke detectors, water leaks, no window guards. No 2021 Financing Utilities Answer Date Recorde d In the last 12 months, has t he electric, gas, oil, or water company threatened to shut off your services in your home? No 10/15/2021 Safety at Home Answer Date Recorded Are you or your family worried about feeling saf e in your home? No 10/15/2021 Outside Support Answer Date Recorded Do you feel that you need mo re support from other people or programs to help you care for yourself or your family? No 10/15/2021 Understanding Health Concerns Answer Da te Recorded Do you need help understandi ng your or your child's healthcare needs (diagnosis, medications, plan, etc.)? No 10/15/2021 Financing Health Concerns Answer Date R ecorded In the last 12 months, was t here a time when your child needed to see a doctor or get medications or supplies but could not because of cost? No 10/15/2021 Missing School or Work Answer Date Wade rded Did you or your child miss s chool or work because of a health problem that could have been avoided? No 10/15/2021 Comments No Sex and Gender Information Value Date Recorded Sex Assigned at Female 05/30/2023 9:22 AM EST Legal Sex Female 2:30 PM EDT Gender Identity Female 05/18/2020 3:57 PM EDT Sexual Orientation Straight 05/30/2023 9: 21 AM EST documented as of this encounter Miscellaneous Notes * Telephone Encounter - Daisy Kerns LPN - 01/14/2022 9:20 AM EDT Faxed refill request/has pending depo next week documented in this encounter Plan of Treatment Not on file documented as of this encounter Visit Diagnoses Diagnosis Encounter for initial prescription of injectable contraceptive documented in this encounter Care Teams Washer Machine Relationship Specialty Start Date End Date Trang Dash MD [address] [place] [phone] PCP - General Pediatrics 02/05/19 10/19/23 documented as of this encounter
--- OUTSIDE RECORDS SUMMARY | 2024-11-28 14:50 | XMS_ITS | Encounter Summary ---
Author Organization [facility] Address [address] [place] [address] Phone Care Team Providers Care Jewelry Casting Model Maker Name Role Phone Trang Dash MD Primary Care Provider [phone] Reason for Visit * Reason Comments Med Refill Encounter Details Date Type Department Care Team ([facility] st Contact Info) Description 03/23/2023 Refill [facility] [place] [address] [place], [place] [phone] Trang Dash MD [address] [place] [address] Migraine without aura and without status migrainosus, not intractable Social History Tobacco Use Types Packs/Day Years [...] encounter Miscellaneous Notes * Telephone Encounter - Trang Dash MD - 03/24/2023 12:32 PM EDT 03/24/2023 (age 22yr) Already sent * Telephone Encounter - Lourdes Hurst LPN - 03/23/2023 8:48 AM EDT Pharm requesting refill amitriptyline. EH documented in this encounter Plan of Treatment Not on file documented as of this encounter Visit Diagnoses Diagnosis Migraine without aura and without status migrainosus, not intractable documented in this encounter Care Teams Jewelry Casting Model Maker Relationship Specialty Start Date End Date Trang Dash MD [address] [place] [address] PCP - General Pediatrics 02/05/19 10/19/23 documented as of this encounter
--- OUTSIDE RECORDS SUMMARY | 2024-11-28 14:50 | XMS_ITS | Encounter Summary ---
Author Organization [facility] Address [address] [place] [address] Phone Care Team Providers Care Trail Construction Worker Name Role Phone Trang Dash MD Primary Care Provider [phone] Reason for Visit * Reason Onset Date Comments Med Refill 08/16/2021 Encounter Details Date Type Department Care Team ([facility] st Contact Info) Description 08/16/2021 Refill [facility] [place] [address] [place] [address] Trang Dash MD [address] [place] [address] Migraine without aura and without status migrainosus, not intractable Social History Tobacco Use Types Packs/Day Years Used Date Smoking Tobacco: Never Smokeless Tobacco: Never Hunger/Food Answer Date Recorded In the last 12 months, did y ou or your family ever eat less than you felt you should because there wasn't enough money for food? No 10/20/2020 Stable Housing Answer Date Recorded Are you worried that in the next 2 months you may not have stable housing? No 10/20/2020 Transportation Concerns Answer Date Rec orded In the last 12 months, have you or your family ever had to go without healthcare because you didn't have a way to get there? No 10/20/2020 Hazards in Home Answer Date Recorded Think about the place you li ve. Do you have problems with any of the following? Pests (mice or roaches), mold, no/not working smoke detectors, water leaks, no window guards. No 2020 Financing Utilities Answer Date Recorde d In the last 12 months, has t he electric, gas, oil, or water company threatened to shut off your services in your home? No 10/20/2020 Safety at Home Answer Date Recorded Are you or your family worried about feeling saf e in your home? No 10/20/2020 Outside Support Answer Date Recorded Do you feel that you need mo re support from other people or programs to help you care for yourself or your family? No 10/20/2020 Understanding Health Concerns Answer Da te Recorded Do you need help understandi ng your or your child's healthcare needs (diagnosis, medications, plan, etc.)? No 10/20/2020 Financing Health Concerns Answer Date R ecorded In the last 12 months, was t here a time when your child needed to see a doctor or get medications or supplies but could not because of cost? No 10/20/2020 Missing School or Work Answer Date Wade rded Did you or your child miss s chool or work because of a health problem that could have been avoided? No 10/20/2020 Comments No Sex and Gender Information Value Date Recorded Sex Assigned at Female 05/30/2023 9:22 AM EST Legal Sex Female 2:30 PM EDT Gender Identity Female 05/18/2020 3:57 PM EDT Sexual Orientation Straight 05/30/2023 9: 21 AM EST documented as of this encounter Miscellaneous Notes * Telephone Encounter - Lili Cook LPN - 08/16/2021 11:28 AM EST Refill request for amitriptyline. Last PE 10/20/20. Next appt 08/17/21. Script cued to pcp for signature. documented in this encounter Plan of Treatment Not on file documented as of this encounter Visit Diagnoses Diagnosis Migraine without aura and without status migrainosus, not intractable documented in this encounter Care Teams Trail Construction Worker Relationship Specialty Start Date End Date Trang Dash MD [address] [place] [id number] PCP - General Pediatrics 02/05/19 10/19/23 documented as of this encounter
--- OUTSIDE RECORDS SUMMARY | 2024-11-28 14:50 | XMS_ITS | Encounter Summary ---
Author Organization [facility] Address [address] [place] [address] Phone Care Team Providers Care Allied Health Instructor Name Role Phone Trang Dash MD Primary Care Provider [phone] Reason for Visit * Reason Onset Date Comments Med Refill 06/23/2023 Encounter Details Date Type Department Care Team ([facility] st Contact Info) Description 06/23/2023 Refill [facility] [place] [address] [place], [place] [phone] Trang Dash MD [address] [place] [address] Migraine without aura and without status migrainosus, [...] encounter Miscellaneous Notes * Telephone Encounter - Scarlet Amaya LPN - 06/24/2023 9:35 AM EST Has a refill left documented in this encounter Plan of Treatment Not on file documented as of this encounter Visit Diagnoses Diagnosis Migraine without aura and without status migrainosus, not intractable documented in this encounter Care Teams Allied Health Instructor Relationship Specialty Start Date End Date Trang Dash MD [address] [place] [id number] PCP - General Pediatrics 02/05/19 10/19/23 documented as of this encounter
== END 2024-11-28 14:32 | disposition home or self-care (01) ==
LOC: HO.HMCFM 13:54
PROVIDERS: PCP Physician Assistant; Visit Provider Physician Assistant
DX: G43.109 Migraine with aura, not intractable, without status migrainosus (principal); G47.00 Insomnia, unspecified; R53.83 Other fatigue; F33.41 Major depressive disorder, recurrent, in partial remission; F41.1 Generalized anxiety disorder

== ENCOUNTER → 2024-11-28 13:53 | Outpatient (BNVA) | payer BC, SELFPAY | PROVIDERS: PCP Physician Assistant; Visit Provider Physician Assistant | DX: G43.109 Migraine with aura, not intractable, without status migrainosus (principal); G47.00 Insomnia, unspecified; R53.83 Other fatigue; F33.41 Major depressive disorder, recurrent, in partial remission; F41.1 Generalized anxiety disorder | CPT/HCPCS: 96127 ==

== ENCOUNTER 2024-11-28 14:37 | Outpatient (REF) | payer BC, SELFPAY ==
--- OUTSIDE RECORDS SUMMARY | 2024-11-28 15:20 | XMS_ITS | Encounter Summary ---
Author Organization [facility] Address [address] [place] [address] Phone Care Team Providers Care Automotive Design Layout Drafter Name Role Phone Trang Dash MD Primary Care Provider [phone] Reason for Visit * Reason Comments Med Refill Encounter Details Date Type Department Care Team ([facility] st Contact Info) Description 03/23/2023 Refill [facility] [place] [address] [place], [place] [phone] Trang Dash MD [address] [place] [address] Migraine without aura and without status migrainosus, [...] intractable documented in this encounter Care Teams Automotive Design Layout Drafter Relationship Specialty Start Date End Date Trang Dash MD [address] [place] [id number] PCP - General Pediatrics 02/05/19 10/19/23 documented as of this encounter
--- OUTSIDE RECORDS SUMMARY | 2024-11-28 15:20 | XMS_ITS | Encounter Summary ---
Author Organization [facility] Address [address] [place] [address] Phone Care Team Providers Care Manager Configuration Name Role Phone Trang Dash MD Primary Care Provider [phone] Reason for Visit * Reason Onset Date Comments Med Refill 08/16/2021 Encounter Details Date Type Department Care Team ([facility] st Contact Info) Description 08/16/2021 Refill [facility] [place] [address] [place] [address] Trang Dash MD [address] [place] [address] Migraine without aura and without status migrainosus, [...] intractable documented in this encounter Care Teams Manager Configuration Relationship Specialty Start Date End Date Trang Dash MD [address] [place] [address] PCP - General Pediatrics 02/05/19 10/19/23 documented as of this encounter
--- OUTSIDE RECORDS SUMMARY | 2024-11-28 15:20 | XMS_ITS | Encounter Summary ---
Author Organization [facility] Address [address] [place] [address] Phone Care Team Providers Care Horticultural Services Supervisor Name Role Phone Trang Dash MD Primary Care Provider [phone] Reason for Visit * Reason Onset Date Comments Med Refill 01/13/2022 Encounter Details Date Type Department Care Team ([facility] st Contact Info) Description 01/13/2022 Refill [facility] [place] [address] [place] [address] Trang Dash MD [address] [place] [address] Encounter for initial prescription of injectable contraceptive [...] contraceptive documented in this encounter Care Teams Horticultural Services Supervisor Relationship Specialty Start Date End Date Trang Dash MD [address] [place] [address] PCP - General Pediatrics 02/05/19 10/19/23 documented as of this encounter
--- OUTSIDE RECORDS SUMMARY | 2024-11-28 15:20 | XMS_ITS | Clinical Summary ---
Author Organization [facility] Address [address] [place] [address] Phone Care Team Providers Care Scalemaker Name Role Phone Unavailable Primary Care Provider [...] though stopped 1 week ago and no LAM x 2 days. Stress level has been [...] Started with therapist 03/2019. Yarelis Prasad in [place] q o week. 04/30/19: Started zoloft at [...] on zoloft per Filiberto, though PHQ9 and MARÍA 7 do not reflect that. She says [...] Started with therapist 03/2019. Yarelis Prasad in [place] q o week. Started zoloft 04/30/19 at [...] weeks. Starting with therapist Yarelis Prasad in [place] early March. Increased prozec to 30 mg [...] a therapist. Sleep OK. + contract for [employer]. Journaling, writing, music helps. Plan: increase prozac [...] Completed 07/22/2020, 015 Procedures * Due to [place] [employer] law, this organization might not be sharing sensitive test results. Procedure Name Priority Date/Time Associated Diagnosis Comments CHLAMYDIA AND GONORRHEA, AMPLIFIED Routine 05/30/2023 10:18 AM EST Screening for chlamydial disease from Last 3 Months or Most Recently Relevant to Health Maintenance Results * Due to [place] [employer] law, this organization might not be sharing sensitive test results. * Chlamydia and Gonorrhoea, Amplified (05/30/2023 10:18 AM EST) Chlamydia Trachomatis, DNA Probe NEGATIVE (NEG) [facility] Comment: No Chlamydia Trachomatis RNA detected in this patient's sample ? (REFERENCE RANGE/NORMAL VALUE: NOT DETECTED) ? Note: This test uses doctorate of chiropractic- mediated amplification method to detect rRNA from C. Trachomatis URINE GC AMP PROBE NEGATIVE (NEG) [facility] Comment: No Neisseria Gonorrhoeae RNA detected in this patient's sample ? (REFERENCE RANGE/NORMAL VALUE: NOT DETECTED) ? NOTE: This test uses doctorate of chiropractic-mediated amplification method to detect rRNA from N.Gonorrhoeae. [...] without risk of sexual abuse. Consult the [facility] if needed. Contact phone number . Therapeutic failure or success cannot be determined with the Aptima Combo2 assay since nucleic acid may persist following appropriate antimicrobial therapy. The Centers for Disease Control and Prevention (CDC) recommends confirmatory retesting using culture or a different nucleic acid amplification test when positive results occur, if indicated. Testing performed or reported by [facility], a Service of [facility], [address] [place] [address] Justin Santo MD, Oceanographic Meteorologist [facility]# [id number] Urine (Urine) 05/30/2023 10: 18 AM EST 05/30/2023 10:20 AM EST Trang Dash MD LAB MICROBIOLOGY - GENERAL OR DERABLES Final Result [facility] from Last 3 Months or Most Recently Relevant to Health Maintenance
--- OUTSIDE RECORDS SUMMARY | 2024-11-28 15:20 | XMS_ITS | Encounter Summary ---
Author Organization [facility] Address [address] [place] [address] Phone Care Team Providers Care Cotton Tier Name Role Phone Trang Dash MD Primary Care Provider [phone] Reason for Visit * Reason Onset Date Comments Med Refill 06/23/2023 Encounter Details Date Type Department Care Team ([facility] st Contact Info) Description 06/23/2023 Refill [facility] [place] [address] [place], [place] [phone] Trang Dash MD [address] [place] [address] Migraine without aura and without status migrainosus, [...] intractable documented in this encounter Care Teams Cotton Tier Relationship Specialty Start Date End Date Trang Dash MD [address] [place] [address] PCP - General Pediatrics 02/05/19 10/19/23 documented as of this encounter
[2024-11-28 17:38] LABS: MANUAL DIFF FLAG NO
[2024-11-28 17:55] LABS: Basophils Absolute Auto 0.1 X10*3/uL (0.0-0.2); Eosinophils Absolute Auto 0.1 X10*3/uL (0.0-0.4); Eosinophils Percent Auto 1.3 % (0-4); Hematocrit 39.8 % (37.0-47.0); Hemoglobin 13.7 g/dl (12.0-16.0); Imm Gran Abs Auto 0.02 X10*3/uL (0.00-0.03); Imm Gran Pct Auto 0.3 % (0.0-0.4); Lymphocytes Absolute Auto 1.9 X10*3/uL (1.2-4.9); Lymphocytes Percent Auto 30.8 % (20-40); Mean Corpuscular HGB Conc 34.4 g/dl (31.0-35.0); Mean Corpuscular Hemoglobin 31.3 pg (27.0-33.0); Mean Corpuscular Volume 90.9 fL (80.0-98.0); Mean Platelet Volume 11.1 fL (9.4-12.3); Monocytes Absolute Auto 0.4 X10*3/uL (0.1-1.2); Monocytes Percent Auto 5.9 % (2-11); Neutrophils Absolute Auto 3.8 x10*3/uL (2.0-8.3); Neutrophils Percent Auto 60.7 % (45-73); Platelet Count 208 X10*3/uL (160-400); Red Blood Count 4.38 X10*6/uL (4.20-5.50); Red Cell Distribution Width 12.9 % (11.0-16.0); White Blood Count 6.3 X10*3/uL (4.8-10.8)
[2024-11-28 18:08] LABS: Alanine Aminotransferase 18 U/L (0-31); Albumin Level 4.6 g/dL (3.5-5.0); Alkaline Phosphatase 55 U/L (39-117); Anion Gap 12 (12-20); Aspartate Amino Transferase 22 U/L (5-31); Bilirubin Total 0.4 mg/dL (0.0-1.0); Blood Urea Nitrogen 9 mg/dL (9-16); Calcium 9.5 mg/dL (8.4-10.2); Carbon Dioxide 25 mmol/L (22-29); Chloride 107 mmol/L (96-108); Estimated Glomerular Filt Rate > 60; Glucose Random 84 mg/dL (60-115); Iron 99 mcg/dL (30-160); Percent Iron Saturation 29 % (15-50); Potassium 3.8 mmol/L (3.3-5.1); Sodium 140 mmol/L (135-145); Total Iron Binding Capacity 347 mcg/dL (228-428); Total Protein 7.4 g/dL (6.5-8.0); Unsaturated Iron Binding 248 ug/dL
[2024-11-28 18:17] LABS: Ferritin 8 ng/mL (10-122); TSH reflex Free T4 1.04 uIU/mL (0.32-4.0); Vitamin D 25-OH Total 18.6 ng/mL (>30)
[2024-11-28 18:36] LABS: Folate 9.2 ng/mL (> or = 4.0); Vitamin B12 252 pg/mL (200-900)
== END 2024-11-28 14:38 | disposition home or self-care (01) ==
LOC: HO.WFDLDS 14:37
PROVIDERS: Visit Provider Physician Assistant
DX: G43.109 Migraine with aura, not intractable, without status migrainosus (principal); G47.00 Insomnia, unspecified; R53.83 Other fatigue
CPT/HCPCS: 36415; 80053; 82306; 82607; 82728; 82746; 83540; 84443; 85025

== ENCOUNTER 2025-03-04 15:50 | Outpatient (AMB) | payer BC, SELFPAY ==
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
--- OUTSIDE RECORDS SUMMARY | 2025-03-04 16:29 | XMS_ITS | Encounter Summary ---
Author Organization [facility] Address [address] [place] [address] Phone Care Team Providers Care Grinder Name Role Phone Trang Dash MD Primary Care Provider [phone] Reason for Visit * Reason Comments Med Refill Encounter Details Date Type Department Care Team ([facility] st Contact Info) Description 03/23/2023 Refill [facility] [address] [place], [place] [phone] Trang Dash MD [address] [place] [address] Migraine without aura and without status migrainosus, [...] intractable documented in this encounter Care Teams Grinder Relationship Specialty Start Date End Date Trang Dash MD [address] [place] [id number] PCP - General Pediatrics 02/05/19 10/19/23 documented as of this encounter
== END 2025-03-04 16:16 | disposition home or self-care (01) ==
LOC: HO.HSM 15:51
PROVIDERS: PCP Physician Assistant; Referring Provider Physician Assistant; Visit Provider Psychiatry & Neurology Neurology
DX: G44.209 Tension-type headache, unspecified, not intractable (principal); G43.009 Migraine without aura, not intractable, without status migrainosus; G47.00 Insomnia, unspecified; G43.109 Migraine with aura, not intractable, without status migrainosus; F41.1 Generalized anxiety disorder
CPT/HCPCS: 99204

== ENCOUNTER 2025-03-26 15:08 | Outpatient (AMB) | payer BC, SELFPAY ==
[2025-03-26 15:15] VITALS: BP 106/68; PULSE 101; RESP 12; O2SAT 98; BMI 21.8
--- NOTE | 2025-03-26 15:15 | MHC.PC.OV ---
Vital Signs 03/26/25 15:15 Height 5 ft 1 in Weight 115 lb 8 oz BMI 21.8 BP 106/68 Blood Pressure Location Rt brachial Position Sitting Respiration 12 Pulse 101 H Pulse Source Pulse Oximeter Pulse Oximetry (%) 98 Oxygen Delivery Method Room Air Intake Visit Reasons: follow up/Migraines Intake Note: Follow up migraines. Radiographer Mammographer Required: No Allergies topiramate (From Topamax) Allergy (Severe, Verified 03/26/25 15:16) red spots all over and itching. Medication List - Last Reconciled 03/26/25 by Dory Guevara PA-C amitriptyline 25 mg PO BEDTIME cholecalciferol (vitamin D3) 1,250 mcg PO QWEEK cyanocobalamin (vitamin B-12) ER (Vitamin B-12 ER) 1,000 mcg PO DAILY hydroxyzine HCl 50 mg PO BEDTIME magnesium oxide 400 mg PO DAILY 30 days riboflavin (vitamin B2) 400 mg PO DAILY 30 days Tobacco use date assessed: 11/28/24 Dental Screening Dental Screen Date: 11/28/24 HPI follow up/Migraines HPI Details The patient is a 23-year-old female with a hx of insomnia, MARÍA, migraines, and b12 def presenting today for a follow up. Neuro: Recently saw Neurology increase on amitriptyline to 25 mg. Tolerating this well. Is having less frequent headaches. Psych: She is doing well with Lexapro 5 mg daily. Does think it could be slightly increased. She is using hydroxyzine as needed at bedtime. Has not needed it as much with the amitriptyline [facility] Medical History (Updated 03/26/25 @ 15:25 by Dory Guevara PA-C) Major depression in partial remission Generalized anxiety disorder Migraine headache with aura Family History Mother HTN (hypertension) Diabetes Social History (Updated 11/28/24 @ 14:11 by Awilda Nunez CMA) Housing: Apartment Alcohol intake: current Patient Tobacco Use Status: Never used Tobacco e-Cigarette/Vaping Use: Never Used Second Hand Smoke Exposure: Yes service: No Current occupational status: employed Current occupation: [employer] Current occupational exposures/hazards: No Cognitive needs: No Hearing needs: No Vision needs: No Questionnaire Thrive Questionnaire Date Thrive assessed: 08/08/24 I am a: Patient What is your living situation today?: I have a steady place to live Within the past 12 months, did the food you bought not last and you didn't have the money to get more?: Never true Within the past 12 months, did you worry whether your food would run out before you got money to buy more?: Never true Do you have trouble paying for medicines?: No Do you have trouble getting transportation to medical appointments?: No Do you have trouble paying your heating and electricity bill?: No Do you have trouble taking care of your child, family member or friend?: No Do you have trouble with day-to-day activities such as bathing, preparing meals, shopping, managing finances, etc.?: No Are you currently unemployed and looking for a job?: No Are you interested in more education?: No Please select the resources that you would like help with: None Currently or been in a relationship where the following occur: No concerns reported THRIVE Score: 0 MARÍA-7 AMB Questionnaire MARÍA-7 Date MARÍA - 7 assessed: 11/13/23 Source: Developed by Drs. Amos Sena, Amy Pritchett, Ever Quintanilla and colleagues, with an educational tomas from [employer]. Physical exam (Primary Care) Vital Signs: Last Vital Signs Pulse 101 H 03/26/25 15:15 Resp 12 03/26/25 15:15 BP 106/68 03/26/25 15:15 Pulse Ox 98 03/26/25 15:15 Oxygen Delivery Method Room Air 03/26/25 15:15 BMI result Body Mass Index 21.8 Tobacco/Smoking Status: Tobacco use Status Tobacco use date assessed 11/28/24 03/26/25 15:20 Patient Tobacco Use Status Never used Tobacco 03/26/25 15:20 e-Cigarette/Vaping Use Never Used 03/26/25 15:20 Thrive Assessment: Date of Thrive Assessment Date Thrive assessed 08/08/24 03/26/25 15:20 Currently or been in a relationship where the following occur: No concerns reported Const Orientation/consciousness: patient oriented x3 HENMT Ears: hearing grossly normal bilaterally Neck Thyroid: Thyroid normal Lymphatic: no lymphadenopathy noted Resp Auscultation: clear to auscultation bilaterally Cardio Rate: regular rate Rhythm: regular rhythm Heart sounds: S1 normal heart sound present and S2 normal heart sound present GI Inspection: Yes normal to inspection Palpation (GI): Soft to palpation and Other GI palpation findings present (nontender, no cva tenderness) Auscultation: normoactive bowel sounds Rectal Exam - Female: deferred Skin General skin exam: no rashes or lesions noted Neuro General: patient oriented x3, gait normal and no focal motor deficits Results AMB Rapid Strep AMB Rapid Strep Negative Last Edit by Awilda Nunez CMA on 03/26/25 15:22 Results Reviewed Results Reviewed: Laboratory Last Values Strep Scn Rapid Clinic Negative 03/26/25 15:20 Coding Level of Care Code Est Pt Level 4 (29982) Complex EM visit Add On G2211 Diagnoses Generalized anxiety disorder F41.1 Recurrent major depressive disorder, in partial remission F33.41 Major depression recurrence: recurrent B12 deficiency E53.8 Vitamin D deficiency E55.9 Assessment & Plan Assessment & Plan (1) Generalized anxiety disorder: Code(s): F41.1 - Generalized anxiety disorder Category: Medical Plan: Increase Lexapro to 10 mg (2) Major depression in partial remission: Code(s): F32.4 - Major depressive disorder, single episode, in partial remission Category: Medical Qualifiers: Major depression recurrence: recurrent Qualified Code(s): F33.41 - Major depressive disorder, recurrent, in partial remission Plan: As above. (3) B12 deficiency: Code(s): E53.8 - Deficiency of other specified B group vitamins Category: Medical Plan: Continue supplement. We will check labs (4) Vitamin D deficiency: Code(s): E55.9 - Vitamin D deficiency, unspecified Category: Medical Plan: As above Orders: Orders Vitamin B12 and Folate 03/26/25 E53.8 - Deficiency of other specified B group vitamins, E55.9 - Vitamin D deficiency, unspecified, F33.41 - Major depressive disorder, recurrent, in partial remission, F41.1 - Generalized anxiety disorder Liver Panel 03/26/25 E53.8 - Deficiency of other specified B group vitamins, E55.9 - Vitamin D deficiency, unspecified, F33.41 - Major depressive disorder, recurrent, in partial remission, F41.1 - Generalized anxiety disorder TSH reflex Free T4 03/26/25 E53.8 - Deficiency of other specified B group vitamins, E55.9 - Vitamin D deficiency, unspecified, F33.41 - Major depressive disorder, recurrent, in partial remission, F41.1 - Generalized anxiety disorder IRON PROFILE 03/26/25 E53.8 - Deficiency of other specified B group vitamins, E55.9 - Vitamin D deficiency, unspecified, F33.41 - Major depressive disorder, recurrent, in partial remission, F41.1 - Generalized anxiety disorder Vitamin D 25-OH Total 03/26/25 E53.8 - Deficiency of other specified B group vitamins, E55.9 - Vitamin D deficiency, unspecified, F33.41 - Major depressive disorder, recurrent, in partial remission, F41.1 - Generalized anxiety disorder AMB Rapid Strep Screen 03/26/25 J02.9 - Acute pharyngitis, unspecified Basic Metabolic Panel 03/26/25 E53.8 - Deficiency of other specified B group vitamins, E55.9 - Vitamin D deficiency, unspecified, F33.41 - Major depressive disorder, recurrent, in partial remission, F41.1 - Generalized anxiety disorder Complete Blood Count Auto Diff 03/26/25 E53.8 - Deficiency of other specified B group vitamins, E55.9 - Vitamin D deficiency, unspecified, F33.41 - Major depressive disorder, recurrent, in partial remission, F41.1 - Generalized anxiety disorder Medications: New escitalopram oxalate (Lexapro) 10 mg PO DAILY 90 tabs 1RF
--- OUTSIDE RECORDS SUMMARY | 2025-03-26 17:16 | XMS_ITS | Encounter Summary ---
Author Organization [facility] Address [address] [place] [address] Phone Care Team Providers Care Peach Grower Name Role Phone Trang Dash MD Primary Care Provider [phone] Reason for Visit * Reason Onset Date Comments Med Refill 06/23/2023 Encounter Details Date Type Department Care Team ([facility] st Contact Info) Description 06/23/2023 Refill [facility] [place] [address] [place], [place] [phone] Trang Dash MD [address] [place] [address] Migraine without aura and without status migrainosus, [...] intractable documented in this encounter Care Teams Peach Grower Relationship Specialty Start Date End Date Trang Dash MD [address] [place] [id number] PCP - General Pediatrics 02/05/19 10/19/23 documented as of this encounter
--- OUTSIDE RECORDS SUMMARY | 2025-03-26 17:16 | XMS_ITS | Encounter Summary ---
Author Organization [facility] Address [address] [place] [address] Phone Care Team Providers Care Architectural Renderer Name Role Phone Trang Dash MD Primary Care Provider [phone] Reason for Visit * Reason Onset Date Comments Med Refill 01/13/2022 Encounter Details Date Type Department Care Team ([facility] st Contact Info) Description 01/13/2022 Refill [facility] [place] [address] [place] [address] Trang Dash MD [address] [place] [address] Encounter for initial prescription of injectable contraceptive [...] contraceptive documented in this encounter Care Teams Architectural Renderer Relationship Specialty Start Date End Date Trang Dash MD [address] [place] [id number] PCP - General Pediatrics 02/05/19 10/19/23 documented as of this encounter
--- OUTSIDE RECORDS SUMMARY | 2025-03-26 17:16 | XMS_ITS | Encounter Summary ---
Author Organization [facility] Address [address] [place] [address] Phone Care Team Providers Care Electrification Adviser Name Role Phone Trang Dash MD Primary Care Provider [phone] Reason for Visit * Reason Onset Date Comments Med Refill 08/16/2021 Encounter Details Date Type Department Care Team ([facility] st Contact Info) Description 08/16/2021 Refill [facility] [place] [address] [place] [address] Trang Dash MD [address] [place] [address] Migraine without aura and without status migrainosus, [...] intractable documented in this encounter Care Teams Electrification Adviser Relationship Specialty Start Date End Date Trang Dash MD [address] [place] [id number] PCP - General Pediatrics 02/05/19 10/19/23 documented as of this encounter
--- OUTSIDE RECORDS SUMMARY | 2025-03-26 17:16 | XMS_ITS | Encounter Summary ---
Author Organization [facility] Address [address] [place] [address] Phone Care Team Providers Care Turbine Engineer Name Role Phone Trang Dash MD Primary Care Provider [phone] Reason for Visit * Reason Comments Med Refill Encounter Details Date Type Department Care Team ([facility] st Contact Info) Description 03/23/2023 Refill [facility] [place] [address] [place], [place] [phone] Trang Dash MD [address] [place] [address] Migraine without aura and without status migrainosus, [...] intractable documented in this encounter Care Teams Turbine Engineer Relationship Specialty Start Date End Date rTang Dash MD [address] [place] [address] PCP - General Pediatrics 02/05/19 10/19/23 documented as of this encounter
--- OUTSIDE RECORDS SUMMARY | 2025-03-26 17:16 | XMS_ITS | Clinical Summary ---
Author Organization [facility] Address [address] [place] [address] Phone Care Team Providers Care Finishing Area Supervisor Name Role Phone Unavailable Primary Care Provider [...] Started with therapist 03/2019. Yarelis Prasad in [place] q o week. 04/30/19: Started zoloft at [...] Started with therapist 03/2019. Yarelis Prasad in [place] q o week. Started zoloft 04/30/19 at [...] weeks. Starting with therapist Yarelis Prasad in [place] early March. Increased prozec to 30 mg [...] a therapist. Sleep OK. + contract for [employer]. Journaling, writing, music helps. Plan: increase prozac [...] 125 08/16/2023 3:56 PM EST Temperature 36.7 C (98 F) 08/16/2023 3:56 PM EST Respiratory Rate - [...] Vaccines (2 - 3-dose series) 11/19/2021 10/22/2021 COVID-19 Vaccine ( season) 2024 12/15/2020, 11/16/2020 Influenza Vaccines (#1) 2025 05/30/20 23, 10/22/2021, 07/22/2020, Additional history exists DTaP,Tdap,and Td Vaccines (7 - Td or [...] Completed 07/22/2020, 015 Procedures * Due to [place] Stickybits law, this organization might not be sharing sensitive test results. Procedure Name Priority Date/Time Associated Diagnosis Comments CHLAMYDIA AND GONORRHEA, AMPLIFIED Routine 05/30/2023 10:18 AM EST Screening for chlamydial disease from Last 3 Months or Most Recently Relevant to Health Maintenance Results * Due to [place] Sticky[employer] law, this organization might not be sharing sensitive test results. * Chlamydia and Gonorrhoea, Amplified (05/30/2023 10:18 AM EST) Chlamydia Trachomatis, DNA Probe NEGATIVE (NEG) [facility] Comment: No Chlamydia Trachomatis RNA detected in this patient's sample (REFERENCE RANGE/NORMAL VALUE: NOT DETECTED) Note: This test uses sheet metal pattern cutter- mediated amplification method to detect rRNA from C. Trachomatis URINE GC AMP PROBE NEGATIVE (NEG) [facility] Comment: No Neisseria Gonorrhoeae RNA detected in this patient's sample (REFERENCE RANGE/NORMAL VALUE: NOT DETECTED) NOTE: This test uses sheet metal pattern cutter-mediated amplification method to detect rRNA from N.Gonorrhoeae. [...] without risk of sexual abuse. Consult the [facility] if needed. Contact phone number . Therapeutic failure or success cannot be determined with the Aptima Combo2 assay since nucleic acid may persist following appropriate antimicrobial therapy. The Centers for Disease Control and Prevention (CDC) recommends confirmatory retesting using culture or a different nucleic acid amplification test when positive results occur, if indicated. Testing performed or reported by [facility], a Service of [facility], [address] [place] [address] Justin Santo MD, Research Neuropsychologist [facility]# [id number] Urine (Urine) 05/30/2023 10: 18 AM EST 05/30/2023 10:20 AM EST us Trang Dash MD LAB MICROBIOLOGY - GENERAL OR DERABLES Final Result [facility] from Last 3 Months or Most Recently Relevant to Health Maintenance
== END 2025-03-26 15:27 | disposition home or self-care (01) ==
LOC: HO.HMCFM 15:09
PROVIDERS: PCP Physician Assistant; Visit Provider Physician Assistant
DX: J02.9 Acute pharyngitis, unspecified (principal)

== ENCOUNTER → 2025-03-26 15:08 | Outpatient (BNVA) | payer BC, SELFPAY | PROVIDERS: PCP Physician Assistant; Visit Provider Physician Assistant | DX: F41.1 Generalized anxiety disorder (principal); G47.00 Insomnia, unspecified; G43.909 Migraine, unspecified, not intractable, without status migrainosus; F33.41 Major depressive disorder, recurrent, in partial remission; E53.8 Deficiency of other specified B group vitamins; E55.9 Vitamin D deficiency, unspecified; J02.9 Acute pharyngitis, unspecified | CPT/HCPCS: 87880 ==